=== PATIENT | female | born 1930 | race Caucasian/White ===

== ENCOUNTER 2017-08-12 21:22 | Inpatient (IN) ==
[2017-08-12] MEDS ORDERED: METOCLOPRAMIDE 10 MG/2 ML VIAL IV STA (21:53)
--- NOTE | 2017-08-12 22:37 | EKG Report ---
Stationary ECG Study 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
[2017-08-12 22:49] LABS: Eosinophils # 0.1 10*3/uL (0.0-0.87); Eosinophils % 0.6 % (0.00-10.9); Hemoglobin 10.6 GM/DL (12.0-16.0); Monocytes % 4.7 % (1.7-12.7)
[2017-08-12 22:54] LABS: Basophils # 0.1 10*3/uL (0.0-0.2); Basophils % 0.4 % (0.0-0.8); Immature Granulocytes % 0.7 %; Immature Granulocytes Absolute 0.13 #; Lymphocytes # 0.9 10*3/uL (1.4-4.0); Lymphocytes % 4.8 % (21.3-54.2); Mean Corpuscular Hemoglobin 21 PG (27-34); Mean Corpuscular Volume 71.2 FL (87-102); Mean Platelet Volume 9.9 FL (9.6-12.0); Monocytes # 0.9 10*3/uL (0.11-0.8); Neutrophils # 17.4 10*3/uL (1.4-7.4); Neutrophils % 88.8 % (38.7-73.9); Platelet Count 282 T/CUMM (130-400); Red Blood Count 5.14 MC/CUMM (3.8-5.5); Red Cell Distribution Width 17.3 % (9.3-17.3); White Blood Count 19.6 T/CUMM (4-12)
[2017-08-12 22:56] LABS: INR 1.1; PT Patient Result 11.3 SECS
[2017-08-12] MEDS ORDERED: METOCLOPRAMIDE 10 MG/2 ML VIAL ONE (22:57)
[2017-08-12 22:58] LABS: Hematocrit 36.1 VOL% (35.7-47.0)
[2017-08-12] MEDS ORDERED: cefTRIAXone 1,000 MG in SODIUM CHLORIDE 0.9% 100 ML IV STA (23:07)
[2017-08-12 23:08] LABS: Alanine Aminotransferase 12 U/L (13-56); Albumin 3.8 G/DL (3.4-5.0); Alkaline Phosphatase 73 U/L (45-117); Aspartate Amino Transferase 20 U/L (0-37); Blood Urea Nitrogen 31 MG/DL (7-18); Calcium 8.9 MG/DL (8.5-10.1); Glucose 162 MG/DL (74-106); Magnesium 2.1 MG/DL (1.8-2.4); Osmolality,Calculated 289.4 MOS/KG (273-304); Sodium 140 MMOL/L (136-145); Total Protein 7.4 G/DL (6.4-8.3); Troponin I Only < 0.015 NG/ML (0.00-0.045)
[2017-08-12] MEDS ORDERED: SODIUM CHLORIDE 0.9% 500 ML IV STA (23:15)
--- NOTE | 2017-08-12 23:22 | Emergency Department Note ---
Tammy Harmon Gwan, am scribing for, and in the presence of, Twin Armenta MD 21:57. IGeovany Kevin Lee, MD, personally performed the services described in this documentation, ascribed by Ron Munoz in my presence, and it is both accurate and complete . Arrival - Arrival Chief Complaint: Nausea/Vomiting/Diarrhea Stated Complaint: N/V ED Nursing Triage Note: C/C productive cough x 1 week, fever and N/V, and confusion started today. Mode of Arrival: Stretcher Source: Family, Old Records Reviewed, RN Notes Reviewed Time Seen by Provider: 08/12/17 21:51 - History of Present Illness HPI Narrative: Patient is a 86 y/o female who presents to the ED via EMS for further evaluation. Patient is a poor historian and is accompanied by family. Family stated that they were alerted to pt's home after reports of pt "shaking all over ". After arriving at pt's home, pt became confused and vomited x4. This prompted the family to alert EMS for transport o ED for further evaluation. Family confirmed that pt has had sinus congestion for the past 2 weeks but denies that pt has taking anything OTC to help relieve sxs. While in ED, pt denies having any chest pain, SOB, abd pain, CONNOLYL or having any recent injury/ fall. Patient is followed by Dr. Dr. Núñez and Dr. Ibarra. No other problems/ complaints reported in ED. Onset (ago): hour(s) Consistency: constant Severity: moderate Allergies/Adverse Reactions: Allergies Allergy/AdvReac Type Severity Reaction Status Date / Time codeine Allergy Unknown/Unable Verified 08/12/17 21:41 to obtain Review of System - Review of System 12 point system: reviewed and no additional remarkable complaints except as stated - Review of System Cardiovascular: Present: as per HPI. Absent: chest pain Gastrointestinal: Present: as per HPI, nausea, vomiting. Absent: abdominal pain Neurological: Present: as per HPI, confusion. Absent: headache, weakness Medical,Surgical,& Family Hx - Medical History Cardio: History of: Cardiac Dysrhythmia (A-fib), CHF, Hypertension - Surgical History Abdominal Surgeries: Surgical HX of: Appendectomy Patient denies: Cholecystectomy Reproductive Surgeries: Patient denies;: Hysterectomy - Social History Smoking Status: Never smoker Frequency of Alcohol Use: None Type of Drug Use: None Exam Vital Signs: Vital Signs Temperature 100.6 F H 08/12/17 21:25 Pulse Rate 79 08/12/17 21:25 Respiratory Rate 20 08/12/17 21:25 Blood Pressure 150/84 08/12/17 21:25 O2 Sat by Pulse Oximetry 91 L 08/12/17 21:25 - General General appearance: alert, in no apparent distress, other (pale) - Head Head exam: Present: atraumatic, normocephalic - ENT ENT exam: Present: normal oropharynx, mucous membranes moist, TM's normal bilaterally, normal external ear exam - Neck Neck exam: Present: full ROM, trachea midline. Absent: tenderness - Chest Chest inspection: Present: symmetric chest wall rise. Absent: tenderness - Respiratory Respiratory exam: Present: normal lung sounds bilaterally. Absent: respiratory distress - Cardiovascular Cardiovascular exam: Present: irregular rhythm, normal heart sounds. Absent: murmur - Abdominal Exam Abdominal exam: Present: soft. Absent: distention, tenderness - Extremities Exam Extremities exam: Present: full ROM. Absent: tenderness - Back Exam Back exam: Present: full ROM. Absent: tenderness - Neurological Exam Neurological exam: Present: alert, oriented X3, CN II-XII intact. Absent: motor sensory deficit - Psychiatric Psychiatric exam: Present: flat affect - Skin Skin exam: Present: warm, dry, intact, normal color, pallor Course Course Narrative: will admit for IV abx and fluids Results - Labs CBC & BMP: 08/12/17 22:34 08/12/17 22:34 Lab Results: I have reviewed the patients labs Labs: Laboratory Tests 08/12/17 08/12/17 22:34 22:34 WBC 19.6 H RBC 5.14 Hgb 10.6 L Hct 36.1 MCV 71.2 L MCH 21 L MCHC 29.0 L Plt Count 282 Neut % (Auto) 88.8 H Lymph % (Auto) 4.8 L Neut # (Auto) 17.4 H Lymph # (Auto) 0.9 L [place] # (Auto) 0.9 H INR 1.1 PT Patient/Control Mix 11.3 Laboratory Tests 08/12/17 08/12/17 22:34 22:34 Sodium 140 Potassium 4.0 Chloride 105 Carbon Dioxide 25 BUN 31 H Creatinine 1.40 H BUN/Creatinine Ratio 22.00 H Glucose 162 H Lactic Acid 2.4 H ALT 12 L Globulin 3.6 H Albumin/Globulin Ratio 1.0 L - Diagnostic Findings Procedure: Chest x-ray: image reviewed by me (LLL pneumonia) Disposition Clinical Impression: Pneumonia, Sepsis, Confusion Case discussed with: patient, patient's family Disposition: Still a Patient Condition: Guarded
[2017-08-12] MEDS ORDERED: cefTRIAXone 1,000 MG VIAL ONE (23:29)
[2017-08-13] LABS: Apearance,Urine Slightly Hazy (Clear); Bacteria,Urine Few /HPF (Few); Bilirubin,Urine Negative (Negative); Blood, Urine Negative (Negative); Glucose,Urine (UA) Negative (Negative); Ketones,Urine Negative (Negative); Mucus,Urine Occasional /LPF (Occasional); Nitrite,Urine Negative (Negative); Protein,Urine 100 MG/DL; RBC,Urine 1 /HPF (0-4); Squamous Epithelial Cell,Urine Occasional /HPF (0-10); Transitional Epi Cells,Urine Occasional /HPF (<1); Urine Color Yellow (Yellow); Urine Specific Gravity 1.015 (1.001-1.035); Urine Urobilinogen < 2.0 EU/DL (0.2-1.0); WBC,Urine 5 /HPF (0-6)
--- NOTE | 2017-08-13 01:59 | Hospitalist History & Physical ---
Assessment and Plan (1) Pneumonia Status: Acute Assessment and plan: Classic acute onset was shaking chill suggestive of pneumococcal pneumonia. Continue Rocephin started in ER. Add azithromycin. O2 sat was 91% on room air in ER. Will admit to telemetry for close observation her sat is 95% on 2 L currently. Current Visit: Yes (2) Confusion Status: Acute Assessment and plan: This was a brief episode of delirium shortly after she had a shaking chill which is not unusual in a patient her age with acute onset of pneumonia. It appears to have resolved. Current Visit: Yes (3) Atrial fibrillation Status: Acute Assessment and plan: This is chronic. She is not on anticoagulants due to GI bleeding with Xarelto and even aspirin. Current rate is around 110. This is probably elevated from the infection physiologically. If it goes any higher she may need further huma blocking agents. Continue digoxin and metoprolol for now. Her digoxin level is 1.3. Current Visit: Yes (4) Chronic congestive heart failure Status: Acute Assessment and plan: This is chronic. She does appear to have some mild JVD but we will not diurese at this point due to her sepsis. I do not want her to become volume depleted in case her pressure drops. Will check 2D echo. Current Visit: Yes (5) History of GI bleed Status: Acute Assessment and plan: She has blood on both Xarelto and aspirin hence is on no anticoagulants for atrial fibrillation. Will also avoid Lovenox for DVT prophylaxis and use SCDs instead. Current Visit: Yes (6) Sepsis Status: Acute Current Visit: Yes (7) Elevated serum creatinine Status: Acute Assessment and plan: Creatinine is 1.4. I do not see any previous ones in her chart going back a couple years. 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 She has some neck vein distention and JVD so I am holding off on fluids at this time. Current Visit: Yes History of Present Illness Chief complaint: shaking chill; confusion History of present illness: Ms. Gaona is a 86 year old female Who experienced a shaking chill this afternoon. [facility] and was feeling normal until she started having violent shaking and chills. Family came over to check on her. They noticed she was extremely upset and anxious. She took a shower and then had some confusion which was brief only lasting a few minutes and then vomited. She was brought to the emergency room where she was found to have a temperature of 100.6. BP was 150/84. Initial O2 saturation was 91% on room air. Her white count was 19.6, hemoglobin 10.6, BUN 31, creatinine 1.4. EKG showed atrial fib which is chronic. She admits to periodic coughing and occasionally brings up sputum she does not know what color it is. She denies chest pain. She denies history of pneumonia. Chest x-ray in ER by my observation appears to show right upper lobe pneumonia. She absolutely insists she does not want to be resuscitated or put on life support even if it is for a nonfatal condition that we could likely treat and reverse such as pneumonia. Home Medications Medication Instructions Recorded Confirmed Type Digoxin [Digoxin] 125 mcg PO DAILY 08/13/17 08/13/17 History Magnesium Chloride [Slow Mag] 64 mg PO DAILY 08/13/17 08/13/17 History Metoprolol Tartrate [Metoprolol 50 mg PO BID 08/13/17 08/13/17 History Tartrate] Multivit-Min/FA/Lycopen/Lutein 1 each PO DAILY 08/13/17 08/13/17 History [Centrum Silver Tablet] Pantoprazole Sodium [Protonix] 40 mg PO DAILY 08/13/17 08/13/17 History Potassium Chloride 10 meq PO DAILY 08/13/17 08/13/17 History Allergies Allergy/AdvReac Type Severity Reaction Status Date / Time codeine Allergy Unknown/Unable Verified 08/12/17 21:41 to obtain Medical,Surgical,& Family Hx - Medical History Cardio: History of: Cardiac Dysrhythmia (Atrial fibrillation, chronic), CHF ( Chronic CHF. There are no old echos in chart), Hypertension Gastrointestinal: History of: Gastrointestinal Bleed (Had GI bleeding years ago then again while on Xarelto then again on aspirin) - Surgical History Abdominal Surgeries: Surgical HX of: Appendectomy Patient denies: Cholecystectomy Reproductive Surgeries: Patient denies;: Hysterectomy - Family History Family History: noncontributory (Reviewed and noncontributory to this encounter) - Social History Smoking Status: Never smoker Frequency of Alcohol Use: None Type of Drug Use: None Lives With:: Alone (She lives next to her daughter. She insists on no resuscitation whatsoever.) 12 point system: reviewed and no additional remarkable complaints except as stated Exam - Constitutional Vitals: Period Temp Pulse Resp BP Sys/Culp Pulse Ox Last 24 Hr 100.6 F-100.6 F 79-79 20-20 150-150/84-84 91 General appearance: normal weight, no acute distress - Head Head exam: Present: normal inspection - Eye Eye exam: Present: EOMI. Absent: conjunctival injection, periorbital swelling Pupils: Present: MONIKA - Neck Neck exam: Present: normal inspection. Absent: meningismus - Respiratory Respiratory exam: Present: rales (Bibasilar rales present.). Absent: wheezes - Cardiovascular Cardiovascular exam: Present: irregular rhythm, JVD (Mild JVD is present.) - GI/Abdominal GI/Abdominal exam: Present: soft. Absent: tenderness - Extremities Exam Extremities exam: Present: edema (1-2+ tibial edema present) - Back Exam Back exam: Absent: CVA tenderness (L), CVA tenderness (R) - Neurological Exam Neurological exam: Present: alert, oriented X3 - Psychiatric Psychiatric exam: Present: normal affect, normal mood - Skin Skin exam: Present: normal color, warm. Absent: rash Results - Labs CBC & BMP: 08/12/17 22:34 08/12/17 22:34
[2017-08-13] MEDS ORDERED: DOCUSATE SODIUM 100 MG CAPSULE PO PRN (02:19)
--- NOTE | 2017-08-13 03:02 | EKG Report ---
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
[2017-08-13 04:30] LABS: Red Blood Count 4.41 MC/CUMM (3.8-5.5); White Blood Count 24.5 T/CUMM (4-12)
[2017-08-13 04:31] LABS: Basophils # 0.1 10*3/uL (0.0-0.2); Basophils % 0.2 % (0.0-0.8); Hematocrit 31.4 VOL% (35.7-47.0); Hemoglobin 9.3 GM/DL (12.0-16.0); Immature Granulocytes % 0.9 %; Immature Granulocytes Absolute 0.22 #; Lymphocytes # 1.5 10*3/uL (1.4-4.0); Lymphocytes % 6.3 % (21.3-54.2); Mean Corpuscular HGB Conc 29.6 GM/DL (32-36); Mean Corpuscular Hemoglobin 21 PG (27-34); Mean Corpuscular Volume 71.2 FL (87-102); Mean Platelet Volume 10.2 FL (9.6-12.0); Monocytes # 1.4 10*3/uL (0.11-0.8); Monocytes % 5.8 % (1.7-12.7); Neutrophils # 21.3 10*3/uL (1.4-7.4); Neutrophils % 86.8 % (38.7-73.9); Platelet Count 267 T/CUMM (130-400); Red Cell Distribution Width 17.2 % (9.3-17.3)
[2017-08-13 05:00] LABS: Calcium 8.6 MG/DL (8.5-10.1); Osmolality,Calculated 284.5 MOS/KG (273-304); Potassium 4.1 MMOL/L (3.5-5.1)
[2017-08-13 05:14] LABS: Magnesium 2.2 MG/DL (1.8-2.4); Thyroid Stimulating Hormone 0.359 uIU/ml (0.358-3.74)
[2017-08-13 07:01] LABS: Band Neutrophils 5 % (0-10); Giant Platelets Few; Hypochromasia 1+; Lymphocytes 2 % (20-55); Ovalocytes Slight; Platelet Estimate Adequate; Segmented Neutrophils 89 % (50-85); Total Cells Counted 100
--- NOTE | 2017-08-13 08:04 | CT Report ---
Exam: CT head without intravenous contrast Clinical History: 86 years Female altered mental status, memory loss, confusion and disorientation Technique: Axial computed tomography images of the head/brain without intravenous contrast Comparison: No relevant comparisons Findings: Brain: Scattered microangiopathic small vessel ischemic changes throughout the deep white matter. Zuñiga-white matter distinction maintained. No mass effect. No intra or extra-axial hemorrhage. Ventricles: Unremarkable. No ventriculomegaly. Bones/joints: Calvarium is intact Soft tissues: Unremarkable Sinuses: Inflammatory changes within the ethmoid sinuses Mastoid air cells: Unremarkable visualized. Impression: 1. No acute intracranial abnormality. Mild microangiopathic small vessel ischemic changes are noted 2. Ethmoid sinus inflammatory changes PROCEDURE INTERPRETED AT [facility] DEPARTMENT OF RADIOLOGY Final Report Signed by: Alvin Zuñiga
[2017-08-13] MEDS ORDERED: METOPROLOL TARTRATE 50 MG TABLET PO SCH (09:00)
[2017-08-13] MEDS: MAGNESIUM CHLORIDE 64 MG TABLET PO SCH (09:16)
[2017-08-13] MEDS: PANTOPRAZOLE 40 MG TABLET PO SCH (09:16)
[2017-08-13] MEDS: POTASSIUM CHLORIDE 10 MEQ TABLET PO SCH (09:16)
--- NOTE | 2017-08-13 10:47 | XRay Report ---
Portable chest Exam date: 08/12/2017 9:52 PM Indication: Shortness of breath, cough Comparison: January 31, 2015 Findings: Cardiomediastinal contours are stable with underlying cardiomegaly. Prominence of the central interstitial pattern with focal consolidation within the left lung base. No acute osseous abnormalities. Visualized upper abdomen demonstrates no acute pathology. Impression: 1. Central interstitial edema pattern 2. Left basilar consolidation, atelectasis versus infection PROCEDURE INTERPRETED AT [facility] DEPARTMENT OF RADIOLOGY Final Report Signed by: Alvin Zuñiga
--- NOTE | 2017-08-13 11:12 | XRay Report ---
Portable chest Exam date: 08/13/2017 510 AM Indication: Shortness of breath, cough Comparison: Previous day at 2200 hours Findings: Cardiomediastinal contours are stable with again prominence of the hilar soft tissues. Right suprahilar and left basilar consolidations are unchanged. No acute osseous abnormalities. Visualized upper abdomen demonstrates no acute pathology. Impression: Right suprahilar and left basilar consolidations, likely unchanged likely infectious in etiology PROCEDURE INTERPRETED AT [facility] DEPARTMENT OF RADIOLOGY Final Report Signed by: Alvin Zuñiga
[2017-08-13] MEDS ORDERED: ALBUTEROL 2.5 MG/3 ML NEB RESP TX PRN (11:26)
--- NOTE | 2017-08-13 11:28 | Event Note ---
Empiric antibiotic coverage remains in progress. At the time of ED presentation , the patient was indeed sepsis secondary to pneumonia and urinary tract infection. We will add inhaled bronchodilator treatments every 4 hours and as needed. In addition, we will resume Bumex 1 mg twice daily per home medication regimen. We will recheck labs and chest x-ray in a.m.
[2017-08-13] MEDS ORDERED: AZITHROMYCIN INJ 500 MG in SODIUM CHLORIDE 0.9% 250 ML IV SCH (12:00)
[2017-08-13] MEDS: ALBUTEROL/IPRATROPIUM 3 ML NEB RESP TX SCH ×2 (13:00→20:12)
[2017-08-13] MEDS ORDERED: LEVOFLOXACIN INJ 500 MG in PREMIX 1 EACH IV SCH (14:00)
[2017-08-13] MEDS: DIGOXIN 0.125 MG TABLET PO SCH (14:36)
[2017-08-13] MEDS: METOPROLOL TARTRATE 25 MG TABLET PO SCH ×2 (14:52→21:01)
[2017-08-13] MEDS: VANCOMYCIN INJ 1,000 MG in SODIUM CHLORIDE 0.9% 250 ML IV SCH (15:58)
[2017-08-13] MEDS: BUMETANIDE 1 MG TABLET PO SCH (18:13)
[2017-08-13] MEDS: guaiFENesin/DM ER 600-30 MG TABLET PO SCH (21:02)
[2017-08-14] MEDS: ALBUTEROL/IPRATROPIUM 3 ML NEB RESP TX SCH ×4 (00:25→19:33)
[2017-08-14] MEDS: ACETAMINOPHEN 325 MG TABLET PO PRN ×2 (04:24→10:51)
[2017-08-14 05:23] LABS: Albumin 3.3 G/DL (3.4-5.0); Bilirubin,Total 0.7 MG/DL (0.2-1.0); Osmolality,Calculated 286.1 MOS/KG (273-304); Phosphorous 3.2 MG/DL (2.5-4.9); Potassium 4.1 MMOL/L (3.5-5.1); Total Protein 6.7 G/DL (6.4-8.3)
[2017-08-14 07:29] LABS: Basophils % 0.3 % (0.0-0.8); Eosinophils # 0.1 10*3/uL (0.0-0.87); Eosinophils % 0.5 % (0.00-10.9); Hematocrit 30.6 VOL% (35.7-47.0); Immature Granulocytes % 0.5 %; Immature Granulocytes Absolute 0.07 #; Lymphocytes # 1.7 10*3/uL (1.4-4.0); Lymphocytes % 11.3 % (21.3-54.2); Mean Corpuscular HGB Conc 29.4 GM/DL (32-36); Mean Corpuscular Hemoglobin 21 PG (27-34); Mean Corpuscular Volume 71.3 FL (87-102); Mean Platelet Volume 10.4 FL (9.6-12.0); Monocytes # 1.1 10*3/uL (0.11-0.8); Monocytes % 7.4 % (1.7-12.7); Neutrophils # 11.6 10*3/uL (1.4-7.4); Platelet Count 233 T/CUMM (130-400); Red Blood Count 4.29 MC/CUMM (3.8-5.5); Red Cell Distribution Width 17.4 % (9.3-17.3); White Blood Count 14.6 T/CUMM (4-12)
[2017-08-14] MEDS ORDERED: AZITHROMYCIN 250 MG TABLET PO SCH (09:00)
[2017-08-14] MEDS: POTASSIUM CHLORIDE 10 MEQ TABLET PO SCH (09:14)
[2017-08-14] MEDS: BUMETANIDE 1 MG TABLET PO SCH (09:14)
[2017-08-14] MEDS: METOPROLOL TARTRATE 25 MG TABLET PO SCH ×2 (09:15→20:16)
[2017-08-14] MEDS: guaiFENesin/DM ER 600-30 MG TABLET PO SCH ×2 (09:15→20:16)
[2017-08-14] MEDS: PANTOPRAZOLE 40 MG TABLET PO SCH (09:16)
[2017-08-14] MEDS: MAGNESIUM CHLORIDE 64 MG TABLET PO SCH (09:16)
--- NOTE | 2017-08-14 09:42 | XRay Report ---
History: COPD Date: 08/14/2017 Study: Chest x-ray AP portable Comparison exam: 08/13/2017 There is stable mild cardiomegaly. The mediastinal contours are unchanged. The pulmonary vasculature is not engorged. The lungs and pleural spaces are clear. Osseous structures are unchanged. Impression: Interval resolution of the bilateral infiltrate compared to the previous study PROCEDURE INTERPRETED AT [facility] DEPARTMENT OF RADIOLOGY Final Report Signed by: Dr. Mary Trujillo
--- NOTE | 2017-08-14 10:18 | Cardiology Consult Note ---
Licha Harmon April, RN, am scribing for, and in the presence of, Av Ibarra MD 10:18. Assessment and Plan - Time spent with patient Time spent with patient: Greater than 30 minutes (Due to assessment, planning, documentation, medication review) (1) Atrial fibrillation Status: Chronic Assessment and plan: This is currently rate controlled on Lopressor and digoxin. She is unable to be anticoagulated because of history of GI bleeding. Current Visit: Yes Qualifiers: Atrial fibrillation type: chronic Qualified Code(s): I48.2 - Chronic atrial fibrillation (2) History of GI bleed Status: Chronic Assessment and plan: The patient has not tolerated anticoagulation in the past because of history of GI bleed. She denies any recent blood in her stool or urine. Current Visit: No (3) Pneumonia Status: Acute Assessment and plan: She is on IV antibiotics (Rocephin, Levaquin, and vancomycin) and is clinically improving. Hospitalist is following. Current Visit: Yes History of Present Illness - Data of Consult Patient: known to practice within the last 3 years Consult date: 08/13/17 Requesting Physician: Vanai Carroll Primary care physician: Saeed Jones - Consult Narrative Reason for consult: History of atrial fibrillation History of present illness: Erection Shop Supervisor: Dr. Ibarra PCP: Dr. Jones Ms. Gaona is a 86 year old female who was previously followed by Dr. Beard. After his residential she established with Dr. Ibarra and saw him on March 08, 2017. She has a history of chronic atrial fibrillation, hypertensive heart disease, anemia, and GI bleed. She is unable to tolerate all blood thinners including baby aspirin because of GI bleed. Surgical history includes bilateral cataracts and appendectomy. She reports she is a lifetime non-smoker. On the evening of August 12, she developed chills, shortness of breath, nausea and vomiting. The symptoms were moderate to severe. She says her granddaughter told her she was confused. She said she had a productive cough for about 1 week prior to this. She was brought to the emergency room for further evaluation. Her white count was noted to be elevated at 19.6. BNP was elevated at 332, troponin was negative. Chest x-ray indicated left basilar consolidation, atelectasis versus infection. She has been started on IV Rocephin, vancomycin, and Levaquin. This morning she reports feeling better with improvement in shortness of breath and cough. She denies any chest pain. Oxygen is in use via nasal cannula. Her Bumex has been restarted and her i's and O's have been negative. White count today is improved at 14.6. Pulmonary blood cultures show no growth at day 1. nuclear monitoring technician currently shows atrial fibrillation with heart rates in the 70s. She is on Lopressor and Lanoxin for rate control. Her right knee is swollen and warm to touch, she complains of pain to her right knee. She is asking that Dr. Huerta be consulted. She states he has given her an injection in her knee before that did help. CC: Jun Valverde MD - Home Medications and Allergies Home Medications: Home Medications Medication Instructions Recorded Confirmed Type Bumetanide Tab [Bumex Tab] 1 mg PO DAILY 08/13/17 08/13/17 History Digoxin [Digoxin] 125 mcg PO DAILY 08/13/17 08/13/17 History Magnesium Chloride [Slow Mag] 64 mg PO DAILY 08/13/17 08/13/17 History Metoprolol Tartrate [Metoprolol 50 mg PO BID 08/13/17 08/13/17 History Tartrate] Multivit-Min/FA/Lycopen/Lutein 1 each PO DAILY 08/13/17 08/13/17 History [Centrum Silver Tablet] Pantoprazole Sodium [Protonix] 40 mg PO DAILY 08/13/17 08/13/17 History Potassium Chloride 10 meq PO DAILY 08/13/17 08/13/17 History Allergies/Adverse Reactions: Allergies Allergy/AdvReac Type Severity Reaction Status Date / Time codeine Allergy Unknown/Unable Verified 08/12/17 21:41 to obtain - Constitutional Constitutional: Present: as per HPI - EENT Nose, mouth and throat: Present: headache(s). Absent: epistaxis, neck pain - Cardiovascular Cardiovascular: Present: dyspnea, dyspnea on exertion. Absent: chest pain at rest, chest pain with activity, edema, radiating jaw, neck or arm pain, lightheadedness, orthopnea, palpitations - Respiratory Respiratory: Present: cough, dyspnea, dyspnea on exertion. Absent: hemoptysis, wheezing - Gastrointestinal Gastrointestinal: Present: nausea, vomiting. Absent: abdominal pain, constipation, diarrhea, hematemesis, hematochezia, melena - Genitourinary Genitourinary: Absent: dysuria, hematuria - Musculoskeletal Musculoskeletal: Present: joint swelling, limited range of motion, muscle weakness - Neurological Neurological: Present: abnormal gait, headache(s). Absent: confusion, dizziness , frequent falls, syncope - Psychiatric Psychiatric: Absent: anxiety, depression - Endocrine Endocrine: Present: fatigue Medical,Surgical,& Family Hx - Medical History Cardio: History of: Cardiac Dysrhythmia (Atrial fibrillation, chronic), CHF ( Chronic CHF. There are no old echos in chart), Hypertension Rheumatology: History of;: Rheumatoid Arthritis Gastrointestinal: History of: Gastrointestinal Bleed (Had GI bleeding years ago then again while on Xarelto then again on aspirin) - Surgical History HEENT Surgeries: Surgical HX of: Eye Surgery (Lasex eye surgery 10/11/2016) Abdominal Surgeries: Surgical HX of: Appendectomy, Colonoscopy - Family History Family History: Reports;: Family Cancer (Brother Leukemia) - Social History Smoking Status: Never smoker Have you smoked in the last 12 months: No Frequency of Alcohol Use: None Type of Drug Use: None Marital Status: Lives With:: Alone Functional capacity: uses cane/walker Physical Examination Vital Signs Temp Pulse Resp BP Pulse Ox 100.6 F H 79 20 150/84 91 L 08/12/17 21:25 08/12/17 21:25 08/12/17 21:25 08/12/17 21:25 08/12/17 21:25 General: Present: Appears Well, No Apparent Distress HEENT: Present: EOMI, PERRL, Mucus Membranes Moist Neck: Present: Supple Neck, Midline Trachea, No JVD/HJR, No Bruit Cardiac: Present: Irregularly Regular. Absent: Tachycardia, Bradycardia Lungs: Present: Normal Breath Sounds, Oxygen (Via nasal cannula), No Wheeze, Rales, Rhonchi Neuro: Absent: Resting Tremor, Essential Tremor Abdomen: Present: Soft, Active Bowel Sounds, Non-Tender. Absent: Distended Skin: Absent: Rash, Suspicious Lesions Musculoskeletal: Present: Decreased Range of Motion, Fluid Collection, Pain in Joint Gait: Present: Poor Gait Extremities: Present: Normal Upper Extr. Pulses, Normal Lower Extr. Pulses, Edema (To right knee). Absent: Normal Gait Result/EKG - Labs CBC & BMP: 08/14/17 06:37 08/14/17 03:56 Lab Results: I have reviewed the past 24 hour labs Labs: Laboratory Results - last 24 hr 08/14/17 08/14/17 08/14/17 03:56 03:56 03:56 WBC RBC Hgb Hct MCV MCH MCHC RDW Plt Count MPV Neut % (Auto) Lymph % (Auto) [place] % (Auto) Eos % (Auto) Baso % (Auto) Neut # (Auto) Lymph # (Auto) [place] # (Auto) Eos # (Auto) Baso # (Auto) Immature Gran % Nucleated RBC % Immature Gran # Nucleated RBCs # Immature Plt Fraction Sodium 142 Potassium 4.1 Chloride 103 Carbon Dioxide 31 Anion Gap 12.1 BUN 21 H Creatinine 1.10 H GFR Calculation 47 BUN/Creatinine Ratio 19.00 Glucose 108 H Calculated Osmolality 286.1 Calcium 9.0 Phosphorus 3.2 Magnesium 2.0 Total Bilirubin 0.70 AST 16 ALT 13 Alkaline Phosphatase 63 C-Reactive Protein 15.00 H B-Natriuretic Peptide 416 H Total Protein 6.7 Albumin 3.3 L Globulin 3.4 Albumin/Globulin Ratio 0.9 L 25-OH Vitamin D Total 08/14/17 08/14/17 03:56 06:37 WBC 14.6 H D RBC 4.29 Hgb 9.0 L Hct 30.6 L MCV 71.3 L MCH 21 L MCHC 29.4 L RDW 17.4 H Plt Count 233 MPV 10.4 Neut % (Auto) 80.0 H Lymph % (Auto) 11.3 L [place] % (Auto) 7.4 Eos % (Auto) 0.5 Baso % (Auto) 0.3 Neut # (Auto) 11.6 H Lymph # (Auto) 1.7 [place] # (Auto) 1.1 H Eos # (Auto) 0.1 Baso # (Auto) 0.0 Immature Gran % 0.5 Nucleated RBC % 0.0 Immature Gran # 0.07 Nucleated RBCs # 0.00 Immature Plt Fraction 0.0 Sodium Potassium Chloride Carbon Dioxide Anion Gap BUN Creatinine GFR Calculation BUN/Creatinine Ratio Glucose Calculated Osmolality Calcium Phosphorus Magnesium Total Bilirubin AST ALT Alkaline Phosphatase C-Reactive Protein B-Natriuretic Peptide Total Protein Albumin Globulin Albumin/Globulin Ratio 25-OH Vitamin D Total 35.3 - Diagnostic Findings Procedure: Chest x-ray: report reviewed by me - EKG EKG results: interpreted by me EKG shows: atrial fibrillation Quality Measures - VTE Contraindication to Pharmacological VTE Prophylaxis: High Risk of Bleeding IStacey Michael, MD, personally performed the services described in this documentation, ascribed by Callie Hurt RN in my presence, and it is both accurate and complete .
--- NOTE | 2017-08-14 12:08 | Hospitalist Progress Note ---
Hospitalist: Subjective Interval history: 86 white female admitted with pneumonia. She reports that her cough and breathing is better today. Did complain of some right knee pain, states has seen Dr. Huerta in the past and has received some injection in the knee previously. [place] was ordered for pain as well as x-rays of the knee, and will check uric acid level. Exam - Constitutional Vitals: Period Temp Pulse Resp BP Sys/Culp Pulse Ox Last 24 Hr 96.6 F-98.3 F 72-108 15-20 108-138/55-76 94-100 Exam: General: No Acute Distress HEENT: Normocephalic, atraumatic, Extra ocular movements intact Neck: Supple, No JVD Chest: Clear to auscultation B/L CV: S1 + S2 audible without murmur, gallop or rub Abd: soft, NT, Non-distended, BS + Ext: No edema Skin: No purpura, bruising or rash Rheumatologic: Right knee moderately swollen but not very warm to touch Neurologic: Strength 5/5 all extremities, no gross sensory deficits Results - Labs CBC & BMP: 08/14/17 06:37 08/14/17 03:56 - Impressions Assessment and Plan: Bacterial pneumonia Status: Acute Assessment and plan: Suspect pneumococcal pneumonia, she is on IV vancomycin and Rocephin and Levaquin, she is breathing better, CXR also shows some improvement in infiltrates Current Visit: Yes Acute hypoxemic respiratory failure due to pneumonia Status: Acute Assessment and plan: Continue O2 Current Visit: Yes Sepsis due to pneumonia Status: Acute Current Visit: Yes Paroxysmal atrial fibrillation Status: Acute Assessment and plan: Heart rate controlled, she is not on anticoagulants due to h/o GI bleeding with Xarelto and even aspirin. Continue digoxin and Lopressor Current Visit: Yes Acute kidney injury Status: Acute Assessment and plan: Her creatinine continues to improve Current Visit: Yes Right knee pain Status: Acute Assessment and plan: We will check uric acid, right knee x-rays, orthopedics consult Current Visit: Yes Quality Measures - VTE Contraindication to Pharmacological VTE Prophylaxis: High Risk of Bleeding
[2017-08-14] MEDS: DIGOXIN 0.125 MG TABLET PO SCH (13:07)
[2017-08-14] MEDS ORDERED: HYDROmorphone 2 MG/1 ML VIAL IV PRN (13:12)
[2017-08-14] MEDS: LEVOFLOXACIN INJ 250 MG in PREMIX 1 EACH IV SCH (14:40)
[2017-08-14] MEDS: ONDANSETRON 4 MG/2 ML VIAL IV PRN ×2 (14:40→20:16)
[2017-08-14] MEDS: VANCOMYCIN INJ 1,000 MG in SODIUM CHLORIDE 0.9% 250 ML IV SCH (15:47)
--- NOTE | 2017-08-14 17:00 | XRay Report ---
Exam: XR knee 2V BI Exam date: 08/14/2017 1:04 PM Indication: Worsening right knee Pain, Comparison: February 02, 2015 Findings: Right: Advanced tricompartmental arthrosis with essentially complete joint space loss, marginal and central osteophytes with remodeling of the articular surfaces, essentially unchanged. No fracture or dislocation. Moderate joint effusion. No radiographic soft tissue abnormalities. Left: Tricompartmental osteoarthrosis, advanced within the medial compartment. No fracture or subluxation. No joint effusion. Impression: 1. Severe tricompartmental arthrosis on the right moderate joint effusion 2. Tricompartmental arthrosis on the left, severe within the medial compartment PROCEDURE INTERPRETED AT [facility] DEPARTMENT OF RADIOLOGY Final Report Signed by: Alvin Zuñiga
--- NOTE | 2017-08-14 17:31 | Orthopedic Consult Note ---
History of Present Illness Chief complaint: Right knee pain History of present illness: Ms. Gaona is a 86 year old female admitted for pneumonia CHF exacerbation on the telemetry service. I been asked to evaluate regarding progressively worsening pain in her right knee she did not have any injury or trauma she does have a known history of severe osteoarthritis involving both of her knees and has had intra-articular cortisone injections in the past which have helped her. She has been using heat and ice for her pain which has not been very successful prompting consultation Examination: Well-developed nourished female she guards with range of motion about the right knee tolerating 5 to about 60 of active flexion she has a sizable effusion her knee is cold secondary to the ice pack there is no pain more distally of the tibia or ankle also no main proximally about the right hip she tolerates gentle range of motion about the left knee without any significant discomfort X-rays: Severe osteoarthritis involving both knees. She is tricompartmental [id number] changes with large osteophyte complexes. Impression: Osteoarthritis bilateral knees right worse than left Plan: I discussed with she and her family present to diagnose treatment plan given the the recent diagnosis of pneumonia and the start of antibiotics I would hold off on any steroid injections at this time I believe the ice is more beneficial than heat at this point given the acuteness of the inflammatory process clinically she does not have an infection in the knee and I will treated symptomatically she can use her Tylenol as needed and I have also will prescribed Voltaren gel which can be used topically multiple times a day is resolving we can consider reinjecting her. The meantime bed to chair mobility she should be able to mobilize and pivot on the left. Home Medications Medication Instructions Recorded Confirmed Type Bumetanide Tab [Bumex Tab] 1 mg PO DAILY 08/13/17 08/13/17 History Digoxin [Digoxin] 125 mcg PO DAILY 08/13/17 08/13/17 History Magnesium Chloride [Slow Mag] 64 mg PO DAILY 08/13/17 08/13/17 History Metoprolol Tartrate [Metoprolol 50 mg PO BID 08/13/17 08/13/17 History Tartrate] Multivit-Min/FA/Lycopen/Lutein 1 each PO DAILY 08/13/17 08/13/17 History [Centrum Silver Tablet] Pantoprazole Sodium [Protonix] 40 mg PO DAILY 08/13/17 08/13/17 History Potassium Chloride 10 meq PO DAILY 08/13/17 08/13/17 History Allergies Allergy/AdvReac Type Severity Reaction Status Date / Time codeine Allergy Unknown/Unable Verified 08/12/17 21:41 to obtain Medical,Surgical,& Family Hx - Medical History Cardio: History of: Cardiac Dysrhythmia (Atrial fibrillation, chronic), CHF ( Chronic CHF. There are no old echos in chart), Hypertension Rheumatology: History of;: Rheumatoid Arthritis Gastrointestinal: History of: Gastrointestinal Bleed (Had GI bleeding years ago then again while on Xarelto then again on aspirin) - Surgical History HEENT Surgeries: Surgical HX of: Eye Surgery ([employer] eye surgery 10/11/2016) Abdominal Surgeries: Surgical HX of: Appendectomy, Colonoscopy Patient denies: Cholecystectomy Reproductive Surgeries: Patient denies;: Hysterectomy - Family History Family History: Reports;: Family Cancer (Brother Leukemia) - Social History Smoking Status: Never smoker Frequency of Alcohol Use: None Type of Drug Use: None Exam - Constitutional Vitals: Period Temp Pulse Resp BP Sys/Culp Pulse Ox Last 24 Hr 96.6 F-97.8 F 64-113 15-20 123-138/59-90 94-100 Results - Labs CBC & BMP: 08/14/17 06:37 08/14/17 03:56
[2017-08-14] MEDS: DICLOFENAC 1% GEL 100 GM TUBE TOP SCH (20:17)
[2017-08-15] MEDS: ALBUTEROL/IPRATROPIUM 3 ML NEB RESP TX SCH ×4 (00:49→19:02)
[2017-08-15] MEDS: METOPROLOL TARTRATE 25 MG TABLET PO SCH (08:09)
[2017-08-15] MEDS: BUMETANIDE 1 MG TABLET PO SCH (08:09)
[2017-08-15] MEDS: MAGNESIUM CHLORIDE 64 MG TABLET PO SCH (08:09)
[2017-08-15] MEDS: POTASSIUM CHLORIDE 10 MEQ TABLET PO SCH (08:09)
[2017-08-15] MEDS: PANTOPRAZOLE 40 MG TABLET PO SCH (08:10)
[2017-08-15] MEDS: guaiFENesin/DM ER 600-30 MG TABLET PO SCH ×2 (08:10→20:33)
[2017-08-15] MEDS: DICLOFENAC 1% GEL 100 GM TUBE TOP SCH ×3 (08:11→20:34)
[2017-08-15] MEDS ORDERED: DESITIN 4OZ/NYSTATIN 15 GRAM MIXTURE PASTE TOP PRN (09:22)
[2017-08-15 09:23] LABS: Basophils % 0.1 % (0.0-0.8); Eosinophils % 0.1 % (0.00-10.9); Hematocrit 32.1 VOL% (35.7-47.0); Hemoglobin 9.4 GM/DL (12.0-16.0); Immature Granulocytes % 1.1 %; Immature Granulocytes Absolute 0.17 #; Lymphocytes # 1.4 10*3/uL (1.4-4.0); Lymphocytes % 8.7 % (21.3-54.2); Mean Corpuscular HGB Conc 29.3 GM/DL (32-36); Mean Corpuscular Hemoglobin 21 PG (27-34); Mean Corpuscular Volume 70.7 FL (87-102); Mean Platelet Volume 10.4 FL (9.6-12.0); Monocytes # 1.3 10*3/uL (0.11-0.8); Neutrophils # 12.8 10*3/uL (1.4-7.4); Platelet Count 267 T/CUMM (130-400); Red Blood Count 4.54 MC/CUMM (3.8-5.5); Red Cell Distribution Width 17.3 % (9.3-17.3); White Blood Count 15.7 T/CUMM (4-12)
[2017-08-15 09:48] LABS: Calcium 8.6 MG/DL (8.5-10.1); Osmolality,Calculated 275.8 MOS/KG (273-304); Potassium 3.5 MMOL/L (3.5-5.1)
--- NOTE | 2017-08-15 10:11 | XRay Report ---
History: Pneumonia Date: 08/15/2017 Study: Chest x-ray AP portable Comparison exam: 08/14/2017 There is stable cardiomegaly. The mediastinal contours are unchanged. There is some increased parenchymal consolidation in the left lower lobe inferiorly, medially, and posteriorly compared to the previous study.. The lungs are otherwise clear and unchanged. There is no pleural effusion. Osseous structures are unchanged. Impression: Increased left lower lobe atelectasis/infiltrate which could represent worsening pneumonia, compared to the previous study PROCEDURE INTERPRETED AT [facility] DEPARTMENT OF RADIOLOGY Final Report Signed by: Dr. Mary Trujillo
--- NOTE | 2017-08-15 12:05 | Pulmonology Consult Note ---
Assessment and Plan (1) Pneumonia Status: Acute Assessment and plan: Primarily left lower lobe pneumonia. This appears to be community-acquired. Patient has never had pneumococcal vaccine or flu vaccine. Pneumococcal pneumonia would be the most likely cause, thus far blood cultures negative. Rocephin and Zithromax should cover. Do not disagree with adding vancomycin. Watch renal function closely. The x-ray looking a little worse after a couple days in the hospital is not unusual. Her BNP is elevated and she may be a little ahead on fluids. She is not getting any IV fluids except with piggyback. Note that hemoptysis is not unusual with community-acquired pneumonia. Current Visit: Yes (2) Atrial fibrillation Status: Chronic Assessment and plan: Rate is controlled. No anticoagulants because of history of bleeding. Current Visit: Yes Qualifiers: Atrial fibrillation type: chronic Qualified Code(s): I48.2 - Chronic atrial fibrillation (3) Chronic congestive heart failure Status: Acute Assessment and plan: BNP in the 400s. Patient has history of congestive heart failure followed by Dr. Ibarra. Will get an echo. A bump with Lasix. This may be why the chest x- ray looks a little worse. Current Visit: Yes History of Present Illness Chief complaint: Cough fever History of present illness: Ms. Gaona is a 86 year old female who had a cold for about a week and a half. She had acute onset of chills and fever 3 days ago. She was brought to the emergency room and found to have a left lower lobe and right upper lobe pneumonia. Also had a urinary tract infection. She was not symptomatic as for his urinary tract infection is concerned. She was placed on Rocephin and Zithromax. Her original white blood count was 24,000. It has come down to 15, 000. She is afebrile. However the chest x-ray shows slightly increased infiltrate at the left base. Vancomycin was ordered and I was consulted. Patient has bilateral knee pain that makes it difficult for her to get out of bed. She had some vomiting yesterday after getting a shot for pain. She is eating a little bit today. She is a non-smoker and has never been a smoker. She has never had a flu shot or a pneumonia vaccine. She had a daughter that of streptococcal pneumonia about 9 years ago. She has atrial fibrillation and relates that she has been diagnosed as having congestive heart failure in the past. She is not on anticoagulants due to history of GI bleeding. Home Medications Medication Instructions Recorded Confirmed Type Bumetanide Tab [Bumex Tab] 1 mg PO DAILY 08/13/17 08/13/17 History Digoxin [Digoxin] 125 mcg PO DAILY 08/13/17 08/13/17 History Magnesium Chloride [Slow Mag] 64 mg PO DAILY 08/13/17 08/13/17 History Metoprolol Tartrate [Metoprolol 50 mg PO BID 08/13/17 08/13/17 History Tartrate] Multivit-Min/FA/Lycopen/Lutein 1 each PO DAILY 08/13/17 08/13/17 History [Centrum Silver Tablet] Pantoprazole Sodium [Protonix] 40 mg PO DAILY 08/13/17 08/13/17 History Potassium Chloride 10 meq PO DAILY 08/13/17 08/13/17 History Allergies Allergy/AdvReac Type Severity Reaction Status Date / Time codeine Allergy Unknown/Unable Verified 08/12/17 21:41 to obtain 12 point system: reviewed and no additional remarkable complaints except as stated - Constitutional Constitutional: Present: chills, fever(s) - Cardiovascular Cardiovascular: Present: diaphoresis, dyspnea on exertion - Respiratory Respiratory: Present: cough, dyspnea on exertion, change in phlegm color (She did have some blood in her sputum yesterday.) - Gastrointestinal Gastrointestinal: Present: vomiting - Genitourinary Genitourinary: Present: urinary incontinence, other (Denies dysuria but has a positive urine culture for E. coli.) - Musculoskeletal Musculoskeletal: Present: arthralgias - Hematologic/Lymphatic Hematologic/Lymphatic: Present: easy bleeding Exam (Pulmonay) H&P - Constitutional Vitals: Period Temp Pulse Resp BP Sys/Culp Pulse Ox Last 24 Hr 97.1 F-98.1 F 64-113 16-20 121-143/56-90 95-99 Exam: Patient is afebrile. Vital signs normal except for pulse irregular. O2 sat 94 % on room air. Pupils react to light. Throat is clear. Neck supple no bruits. Chest reveals rales primarily at the left base. Heart is irregular without murmur. Abdomen soft nontender no masses. Extremities no clubbing cyanosis or edema. Calves nontender. Medical,Surgical,& Family Hx - Medical History Cardio: History of: Cardiac Dysrhythmia (Atrial fibrillation, chronic), CHF ( Chronic CHF. There are no old echos in chart), Hypertension Rheumatology: History of;: Rheumatoid Arthritis Gastrointestinal: History of: Gastrointestinal Bleed (Had GI bleeding years ago then again while on Xarelto then again on aspirin) - Surgical History HEENT Surgeries: Surgical HX of: Eye Surgery ([facility] eye surgery 10/11/2016) Abdominal Surgeries: Surgical HX of: Appendectomy, Colonoscopy Patient denies: Cholecystectomy Reproductive Surgeries: Patient denies;: Hysterectomy - Family History Family History: Reports;: Family Cancer (Brother Leukemia) - Social History Smoking Status: Never smoker Frequency of Alcohol Use: None Type of Drug Use: None Results - Labs CBC & BMP: 08/15/17 08:34 08/15/17 08:34 Lab Results: I have reviewed the past 24 hour labs - Diagnostic Findings Procedure: Chest x-ray: image reviewed by me (Left lower lobe pneumonia. Probable right apical infiltrate as well. X-ray show slightly increased infiltrate compared to admission x-ray.) Quality Measures - VTE Contraindication to Pharmacological VTE Prophylaxis: High Risk of Bleeding
[2017-08-15] MEDS: DIGOXIN 0.125 MG TABLET PO SCH (13:03)
[2017-08-15] MEDS: LEVOFLOXACIN INJ 250 MG in PREMIX 1 EACH IV SCH (13:04)
--- NOTE | 2017-08-15 14:54 | Hospitalist Progress Note ---
Hospitalist: Subjective Interval history: 86 white female admitted with pneumonia. She reports that her cough and breathing is better today. Cough is better. Exam - Constitutional Vitals: Period Temp Pulse Resp BP Sys/Culp Pulse Ox Last 24 Hr 97.1 F-98.1 F 79-113 16-20 121-143/56-90 95-99 Exam: General: No Acute Distress HEENT: Normocephalic, atraumatic, Extra ocular movements intact Neck: Supple, No JVD Chest: Clear to auscultation B/L CV: S1 + S2 audible without murmur, gallop or rub Abd: soft, NT, Non-distended, BS + Ext: No edema Skin: No purpura, bruising or rash Rheumatologic: Right knee moderately swollen but not very warm to touch Neurologic: Strength 5/5 all extremities, no gross sensory deficits Results - Labs CBC & BMP: 08/15/17 08:34 08/15/17 08:34 - Impressions Assessment and Plan: Bacterial pneumonia Status: Acute Assessment and plan: Suspect pneumococcal pneumonia, she is on IV vancomycin and Rocephin and Levaquin, she is breathing better. Current Visit: Yes Acute hypoxemic respiratory failure due to pneumonia Status: Acute Assessment and plan: Continue O2 Current Visit: Yes Sepsis due to pneumonia Status: Acute Current Visit: Yes Paroxysmal atrial fibrillation Status: Acute Assessment and plan: Heart rate controlled, she is not on anticoagulants due to h/o GI bleeding with Xarelto and even aspirin. Continue digoxin and Lopressor Current Visit: Yes Acute kidney injury Status: Acute Assessment and plan: Her creatinine continues to improve Current Visit: Yes Severe knee osteoarthritis with knee pain Status: Acute Assessment and plan: She has severe knee osteoarthritis on x-rays, getting pain management Current Visit: Yes Quality Measures - VTE Contraindication to Pharmacological VTE Prophylaxis: High Risk of Bleeding
[2017-08-15] MEDS: VANCOMYCIN INJ 1,000 MG in SODIUM CHLORIDE 0.9% 250 ML IV SCH (15:07)
--- NOTE | 2017-08-15 18:19 | Order Completion Report ---
See report scanned to EMR
--- NOTE | 2017-08-15 18:59 | Cardiology Progress Note ---
I, Jenny Ortega, KALEY, am scribing for, and in the presence of, Av Ibarra MD 18:59. Assessment and Plan - Time spent with patient Time spent with patient: Greater than 30 minutes (Record review, assessment and documentation) (1) Pneumonia Status: Acute Assessment and plan: SEE PLAN LISTED BELOW Current Visit: Yes (2) Atrial fibrillation Status: Chronic Assessment and plan: SEE PLAN LISTED BELOW Current Visit: Yes Qualifiers: Atrial fibrillation type: chronic Qualified Code(s): I48.2 - Chronic atrial fibrillation (3) History of GI bleed Status: Chronic Assessment and plan: SEE PLAN LISTED BELOW Current Visit: No Cardiology - PN: Subj Interval history: Technology Advisor: Dr. Ibarra PCP: Dr. Jones SUMMARY: Ms. Gaona is a 86 year old female who was previously followed by Dr. Beard. After his custodial she established with Dr. Ibarra and saw him on March 08, 2017. She has a history of chronic atrial fibrillation, hypertensive heart disease, anemia, and GI bleed. She is unable to tolerate all blood thinners including baby aspirin because of GI bleed. Surgical history includes bilateral cataracts and appendectomy. She reports she is a lifetime non-smoker. She was presented to [facility] ER for evaluation for chills, nausea, vomiting, and dyspnea. She reports confusion, and had a productive cough for about 1 week prior to this. BNP was elevated at 332, troponin was negative. Chest x-ray indicated left basilar consolidation. Currently on IV Rocephin, vancomycin, and Levaquin. Orthopedics were consulted for right knee pain. 2016: The patient is sitting up in a chair this morning, clinically she reports improvement however her chest x-ray shows an increased left lower lobe infiltrate. She continues to get IV antibiotics for pneumonia. White count persistently elevated. Labs reviewed, creatinine 0.9, uric acid 6.5. The patient will not be able to get a steroid injection to the right knee due to her active pneumonia. This does severely limit her mobility, and this is her main concern this morning. The patient has had several episodes of A. fib with RVR, rate in the 140s. She remains asymptomatic. I am going to increase her beta-aure to try to get better rate control. She is unable to take anticoagulants due to previous GI bleed. IMPRESSION AND PLAN: 1. CHRONIC AFIB - continue beta aure and digoxin for rate control. I am bumping up her metoprolol dose due to periods of tachycardia. She is at higher risk for stroke due to inability to take anticoagulants. 2. CAD - no anginal symptoms, cardiac biomarkers negative. Unable to take ASA. 3. INTOLERANT OF ANTICOAGULATION - previous GI bleed, Chads Vasc score 4. Exam (Progress Note) - Constitutional Vitals: Period Temp Pulse Resp BP Sys/Culp Pulse Ox Last 24 Hr 97.1 F-98.1 F 64-113 16-20 122-143/56-90 96-100 Exam: General: Appears well with no apparent distress. Pleasant and cooperative. Appears comfortable. HEENT: PERRL, normocephalic, atraumatic. Mucous membranes moist. No jaundice noted. Conjunctiva moist and clear, sclerae anicteric. Neck: No JVD, no thyromegaly or lymphadenopathy noted. No carotid bruit appreciated. Cardiac: Irregular rate and rhythm. No murmur rub or gallop. PMI is nondisplaced. Lungs: Slight wheeze bilaterally coarse bilaterally without accessory muscle use to assist the respiratory pattern. Oxygen in use via nasal cannula. Abdomen: Soft, bowel sounds normoactive. Nontender and nondistended. No abdominal bruit or thrill noted. No masses noted. Musculoskeletal: No fluid collection. Decreased range of motion is noted, edema and tenderness to palpation right knee. Extremities: No clubbing, cyanosis noted. No edema noted. Upper extremity pulses 2+. Lower extremity pulses 2+. Capillary refill less than 3 seconds. Skin: Warm and dry. No unusual lesions or rashes. No skin breakdown appreciated. Neuro: Awake, alert and oriented 3. Moves all extremities well without hemiparesis or paralysis. No essential tremor is appreciated. Result/EKG - Labs CBC & BMP: 08/15/17 08:34 08/15/17 08:34 Lab Results: I have reviewed the past 24 hour labs Labs: Laboratory Results - last 24 hr 08/15/17 08/15/17 08/15/17 04:08 08:34 08:34 WBC 15.7 H RBC 4.54 Hgb 9.4 L Hct 32.1 L MCV 70.7 L MCH 21 L MCHC 29.3 L RDW 17.3 Plt Count 267 MPV 10.4 Neut % (Auto) 82.0 H Lymph % (Auto) 8.7 L [place] % (Auto) 8.0 Eos % (Auto) 0.1 Baso % (Auto) 0.1 Neut # (Auto) 12.8 H Lymph # (Auto) 1.4 [place] # (Auto) 1.3 H Eos # (Auto) 0.0 Baso # (Auto) 0.0 Immature Gran % 1.1 Nucleated RBC % 0.0 Immature Gran # 0.17 Nucleated RBCs # 0.00 Immature Plt Fraction 0.0 Sodium 137 Potassium 3.5 Chloride 98 Carbon Dioxide 32 Anion Gap 10.5 BUN 18 Creatinine 0.90 GFR Calculation 60 BUN/Creatinine Ratio 20.00 Glucose 110 H Calculated Osmolality 275.8 Uric Acid 6.5 H Calcium 8.6 - Diagnostic Findings Procedure: Chest x-ray: report reviewed by me - EKG EKG results: interpreted by me EKG shows: atrial fibrillation Quality Measures - VTE Contraindication to Pharmacological VTE Prophylaxis: High Risk of Bleeding Stacey Harmon Michael, MD, personally performed the services described in this documentation, ascribed by Jenny Ortega NP in my presence, and it is both accurate and complete [id number] .
[2017-08-15] MEDS: METOPROLOL TARTRATE 50 MG TABLET PO SCH (20:34)
[2017-08-16 05:33] LABS: Calcium 8.4 MG/DL (8.5-10.1); Magnesium 2.1 MG/DL (1.8-2.4); Osmolality,Calculated 277.7 MOS/KG (273-304); Potassium 3.7 MMOL/L (3.5-5.1)
--- NOTE | 2017-08-16 07:23 | Pulmonology Progress Note ---
Pulmonary - PN: Subj Interval history: This 86-year-old lady came in with acute community-acquired pneumonia. He had fever initially along with chills. This has subsided. She is feeling better. Continuing with empiric antibiotics. Cultures have been negative. Based on her history pneumococcal pneumonia would be the most likely. She has some mildly elevated BNP and her echo showed mitral regurgitation. Need to be careful about hydration. Exam (Progress Note) - Constitutional Vitals: Period Temp Pulse Resp BP Sys/Culp Pulse Ox Last 24 Hr 97.3 F-99.2 F 80-110 16-20 119-133/60-76 94-100 Exam: She is alert and responsive. Vital signs normal. Pupils react to light. Throat is clear. Neck supple no bruits. Chest reveals some rales at the left base. Heart normal rate and rhythm grade 1/6 systolic murmur at left sternal border. Abdomen soft nontender no masses. Bowel sounds present. Extremities no clubbing cyanosis or edema. Calves nontender. Results - Labs CBC & BMP: 08/15/17 08:34 08/16/17 04:09 Lab Results: I have reviewed the past 24 hour labs Assessment and Plan (1) Pneumonia Status: Acute Assessment and plan: Primarily left lower lobe pneumonia. This appears to be community-acquired. Patient has never had pneumococcal vaccine or flu vaccine. Pneumococcal pneumonia would be the most likely cause, thus far blood cultures negative. Rocephin and Zithromax should cover. Do not disagree with adding vancomycin. Watch renal function closely. The x-ray looking a little worse after a couple days in the hospital is not unusual. Her BNP is elevated and she may be a little ahead on fluids. She is not getting any IV fluids except with piggyback. Note that hemoptysis is not unusual with community-acquired pneumonia. 08/16/2017 community-acquired pneumonia. Pneumococcal disease will be top of the list. She is on broad-spectrum antibiotics to cover her for that and other causes. Will likely take a month or 6 weeks for the x-ray to clear. Current Visit: Yes (2) Atrial fibrillation Status: Chronic Assessment and plan: Rate is controlled. No anticoagulants because of history of bleeding. 08/16/2017 has enlarged atria on echo. Rate is controlled. Current Visit: Yes Qualifiers: Atrial fibrillation type: chronic Qualified Code(s): I48.2 - Chronic atrial fibrillation (3) Chronic congestive heart failure Status: Acute Assessment and plan: BNP in the 400s. Patient has history of congestive heart failure followed by Dr. Ibarra. Will get an echo. A bump with Lasix. This may be why the chest x- ray looks a little worse. 08/16/2017 congestive heart failure due to atrial fibrillation and mitral regurgitation. Does not appear to be in active failure at present. Current Visit: Yes
[2017-08-16] MEDS: ALBUTEROL/IPRATROPIUM 3 ML NEB RESP TX SCH ×4 (07:31→20:15)
[2017-08-16] MEDS: BUMETANIDE 1 MG TABLET PO SCH ×2 (10:26→10:29)
[2017-08-16] MEDS: POTASSIUM CHLORIDE 10 MEQ TABLET PO SCH (10:26)
[2017-08-16] MEDS: PANTOPRAZOLE 40 MG TABLET PO SCH (10:27)
[2017-08-16] MEDS: METOPROLOL TARTRATE 50 MG TABLET PO SCH ×2 (10:27→22:00)
[2017-08-16] MEDS: MAGNESIUM CHLORIDE 64 MG TABLET PO SCH (10:27)
[2017-08-16] MEDS: guaiFENesin/DM ER 600-30 MG TABLET PO SCH ×2 (10:27→22:00)
[2017-08-16] MEDS: DICLOFENAC 1% GEL 100 GM TUBE TOP SCH ×3 (10:27→22:00)
[2017-08-16] MEDS: DIGOXIN 0.125 MG TABLET PO SCH (13:31)
[2017-08-16] MEDS: LEVOFLOXACIN INJ 250 MG in PREMIX 1 EACH IV SCH (14:05)
--- NOTE | 2017-08-16 14:31 | Hospitalist Progress Note ---
Hospitalist: Subjective Interval history: 86 white female admitted with pneumonia. She reports that her cough and breathing is better today. Cough is better. Exam - Constitutional Vitals: Period Temp Pulse Resp BP Sys/Culp Pulse Ox Last 24 Hr 97.3 F-99.2 F 75-110 16-20 113-129/60-76 94-100 Exam: General: No Acute Distress HEENT: Normocephalic, atraumatic, Extra ocular movements intact Neck: Supple, No JVD Chest: Clear to auscultation B/L CV: S1 + S2 audible without murmur, gallop or rub Abd: soft, NT, Non-distended, BS + Ext: No edema Skin: No purpura, bruising or rash Rheumatologic: Right knee moderately swollen but not very warm to touch Neurologic: Strength 5/5 all extremities, no gross sensory deficits Results - Labs CBC & BMP: 08/15/17 08:34 08/16/17 04:09 - Impressions Assessment and Plan: Bacterial pneumonia Status: Acute Assessment and plan: Suspect pneumococcal pneumonia, she is on IV vancomycin and Rocephin and Levaquin, she is breathing better. Current Visit: Yes Acute hypoxemic respiratory failure due to pneumonia Status: Acute Assessment and plan: Continue O2 Current Visit: Yes Sepsis due to pneumonia Status: Acute Current Visit: Yes Paroxysmal atrial fibrillation Status: Acute Assessment and plan: Heart rate controlled, she is not on anticoagulants due to h/o GI bleeding with Xarelto and even aspirin. Continue digoxin and Lopressor Current Visit: Yes Acute kidney injury Status: Acute Assessment and plan: Her creatinine continues to improve Current Visit: Yes Severe knee osteoarthritis with knee pain Status: Acute Assessment and plan: She has severe knee osteoarthritis on x-rays, getting pain management Current Visit: Yes Quality Measures - VTE Contraindication to Pharmacological VTE Prophylaxis: High Risk of Bleeding
[2017-08-16] MEDS: VANCOMYCIN INJ 1,000 MG in SODIUM CHLORIDE 0.9% 250 ML IV SCH (16:10)
[2017-08-17] MEDS: ALBUTEROL/IPRATROPIUM 3 ML NEB RESP TX SCH ×4 (01:02→20:15)
[2017-08-17] MEDS ORDERED: VANCOMYCIN INJ 1,000 MG in SODIUM CHLORIDE 0.9% 250 ML IV SCH (04:00)
[2017-08-17] MEDS: VANCOMYCIN INJ 1,000 MG in SODIUM CHLORIDE 0.9% 250 ML IV SCH ×2 (04:37→16:23)
[2017-08-17 06:22] LABS: Basophils # 0.1 10*3/uL (0.0-0.2); Basophils % 0.5 % (0.0-0.8); Eosinophils # 0.3 10*3/uL (0.0-0.87); Eosinophils % 2.6 % (0.00-10.9); Hematocrit 28.9 VOL% (35.7-47.0); Hemoglobin 8.5 GM/DL (12.0-16.0); Lymphocytes # 1.8 10*3/uL (1.4-4.0); Lymphocytes % 18.2 % (21.3-54.2); Mean Corpuscular HGB Conc 29.4 GM/DL (32-36); Mean Corpuscular Hemoglobin 21 PG (27-34); Mean Corpuscular Volume 71.5 FL (87-102); Mean Platelet Volume 10.7 FL (9.6-12.0); Monocytes # 1.1 10*3/uL (0.11-0.8); Neutrophils # 6.5 10*3/uL (1.4-7.4); Neutrophils % 66.7 % (38.7-73.9); Platelet Count 259 T/CUMM (130-400); Red Blood Count 4.04 MC/CUMM (3.8-5.5); Red Cell Distribution Width 17.5 % (9.3-17.3); White Blood Count 9.7 T/CUMM (4-12)
[2017-08-17 06:55] LABS: Calcium 8.6 MG/DL (8.5-10.1); Osmolality,Calculated 280.4 MOS/KG (273-304); Potassium 4.5 MMOL/L (3.5-5.1)
[2017-08-17] MEDS ORDERED: PNEUMOCOCCAL VACCINE (13 VALENT) 0.5 ML SYRINGE IM ONE (07:29)
--- NOTE | 2017-08-17 07:35 | Pulmonology Progress Note ---
Pulmonary - PN: Subj Interval history: This 86-year-old lady came in with acute community-acquired pneumonia. He had fever initially along with chills. This has subsided. She is feeling better. Continuing with empiric antibiotics. Cultures have been negative. Based on her history pneumococcal pneumonia would be the most likely. She has some mildly elevated BNP and her echo showed mitral regurgitation. Need to be careful about hydration. 08/17/2017 patient is clearly improved today. Chest x-ray shows some clearing in the left lower lobe. Appetite is better. At this point would be okay with need to change to oral antibiotics and allow her to go home. She relates that she has a difficult time walking with her knee situation. It would be acceptable to proceed with injection of her right knee with steroids per Dr. Huerta. I think her pneumonia infection is under control. She also can get both a pneumococcal vaccine and a flu shot prior to discharge. Exam (Progress Note) - Constitutional Vitals: Period Temp Pulse Resp BP Sys/Culp Pulse Ox Last 24 Hr 97.3 F-99 F 78-103 16-22 113-131/58-74 94-100 Exam: She is alert and responsive. Vital signs normal. Pupils react to light. Throat is clear. Neck supple no bruits. Chest reveals few rales at the left base. Heart normal rate and rhythm grade 1/6 systolic murmur at left sternal border. Abdomen soft nontender no masses. Bowel sounds present. Extremities no clubbing cyanosis or edema. Calves nontender. Overall sounds better today. Results - Labs CBC & BMP: 08/17/17 04:12 08/17/17 04:12 Lab Results: I have reviewed the past 24 hour labs - Diagnostic Findings Procedure: Chest x-ray: image reviewed by me (Left basilar infiltrate is improved) Assessment and Plan (1) Pneumonia Status: Acute Assessment and plan: Primarily left lower lobe pneumonia. This appears to be community-acquired. Patient has never had pneumococcal vaccine or flu vaccine. Pneumococcal pneumonia would be the most likely cause, thus far blood cultures negative. Rocephin and Zithromax should cover. Do not disagree with adding vancomycin. Watch renal function closely. The x-ray looking a little worse after a couple days in the hospital is not unusual. Her BNP is elevated and she may be a little ahead on fluids. She is not getting any IV fluids except with piggyback. Note that hemoptysis is not unusual with community-acquired pneumonia. 08/16/2017 community-acquired pneumonia. Pneumococcal disease will be top of the list. She is on broad-spectrum antibiotics to cover her for that and other causes. Will likely take a month or 6 weeks for the x-ray to clear. 08/17/2017 community-acquired pneumonia. Doing well with current antibiotics. Could be changed to oral cephalosporin and discharged. Current Visit: Yes (2) Atrial fibrillation Status: Chronic Assessment and plan: Rate is controlled. No anticoagulants because of history of bleeding. 08/16/2017 has enlarged atria on echo. Rate is controlled. 08/17/2017 rate is controlled. He has mitral regurgitation and enlarged atria. Current Visit: Yes Qualifiers: Atrial fibrillation type: chronic Qualified Code(s): I48.2 - Chronic atrial fibrillation (3) Chronic congestive heart failure Status: Acute Assessment and plan: BNP in the 400s. Patient has history of congestive heart failure followed by Dr. Ibarra. Will get an echo. A bump with Lasix. This may be why the chest x- ray looks a little worse. 08/16/2017 congestive heart failure due to atrial fibrillation and mitral regurgitation. Does not appear to be in active failure at present. 08/17/2017 no active heart failure at present. Current Visit: Yes
[2017-08-17] MEDS ORDERED: methylPREDNISolone ACETATE 40 MG/1 ML VIAL MISC INJ ONE (08:13)
[2017-08-17] MEDS ORDERED: LIDOCAINE 1% 20 ML VIAL MISC INJ ONE (08:13)
--- NOTE | 2017-08-17 08:18 | XRay Report ---
History: Pneumonia Date: 08/17/2017 Study: Chest x-ray AP portable Comparison exam: August 15, 2017 There is stable cardiomegaly. The mediastinal contour is unchanged. The pulmonary vasculature is not engorged. The atelectasis/infiltrate in the left lower lobe posteriorly and medially is stable to slightly improved. There is mild strandy subsegmental atelectasis in the right infrahilar area. There is no gross pleural effusion. Osseous structures are unchanged. Impression: Stable to slightly improved left lower lobe atelectasis/infiltrate. Mild right infrahilar subsegmental atelectasis PROCEDURE INTERPRETED AT [facility] DEPARTMENT OF RADIOLOGY Final Report Signed by: Dr. Mary Trujillo
--- NOTE | 2017-08-17 09:22 | Orthopedic Progress Note ---
Orthopedics - Subjective Interval history: Patient pneumonia and white count improved knee essentially unchanged. With alcohol prep 3 cc of 1% lidocaine and 40 mg Depo-Medrol were injected to the anterolateral knee I have outlined expectations if her improvement. She will follow-up as needed again she may mobilize to weight-bear as tolerated on her degenerative right knee thank you Exam - Constitutional Vitals: Period Temp Pulse Resp BP Sys/Culp Pulse Ox Last 24 Hr 97.3 F-99 F 78-103 16-22 115-131/58-74 94-100 Results - Labs CBC & BMP: 08/17/17 04:12 08/17/17 04:12 Quality Measures - VTE Contraindication to Pharmacological VTE Prophylaxis: High Risk of Bleeding
[2017-08-17] MEDS: BUMETANIDE 1 MG TABLET PO SCH (09:29)
[2017-08-17] MEDS: METOPROLOL TARTRATE 50 MG TABLET PO SCH ×2 (09:30→20:47)
[2017-08-17] MEDS: DICLOFENAC 1% GEL 100 GM TUBE TOP SCH ×3 (09:30→20:47)
[2017-08-17] MEDS: guaiFENesin/DM ER 600-30 MG TABLET PO SCH ×2 (09:30→20:48)
[2017-08-17] MEDS: PANTOPRAZOLE 40 MG TABLET PO SCH (09:30)
[2017-08-17] MEDS: POTASSIUM CHLORIDE 10 MEQ TABLET PO SCH (09:30)
[2017-08-17] MEDS: MAGNESIUM CHLORIDE 64 MG TABLET PO SCH (09:30)
--- NOTE | 2017-08-17 09:40 | Cardiology Progress Note ---
IJordan Lesley, KALEY, am scribing for, and in the presence of, Av Ibarra MD 09:40. Assessment and Plan - Time spent with patient Time spent with patient: Greater than 30 minutes (Record review, assessment, and documentation) (1) Pneumonia Status: Acute Assessment and plan: SEE PLAN LISTED BELOW Current Visit: Yes (2) Atrial fibrillation Status: Chronic Assessment and plan: SEE PLAN LISTED BELOW Current Visit: Yes Qualifiers: Atrial fibrillation type: chronic Qualified Code(s): I48.2 - Chronic atrial fibrillation (3) History of GI bleed Status: Chronic Assessment and plan: SEE PLAN LISTED BELOW Current Visit: No Cardiology - PN: Subj Interval history: SUMMARY: Ms. Gaona is a 86 year old female who was previously followed by Dr. Beard. After his senior living she established with Dr. Ibarra and saw him on March 08, 2017. She has a history of chronic atrial fibrillation, hypertensive heart disease, anemia, and GI bleed. She is unable to tolerate all blood thinners including baby aspirin because of GI bleed. Surgical history includes bilateral cataracts and appendectomy. She reports she is a lifetime non-smoker. She was presented to [facility] ER for evaluation for chills, nausea, vomiting, and dyspnea. She reports confusion, and had a productive cough for about 1 week prior to this. BNP was elevated at 332, troponin was negative. Chest x-ray indicated left basilar consolidation. Currently on IV Rocephin, vancomycin, and Levaquin. Orthopedics were consulted for right knee pain. 2016: The patient is sitting up in a chair this morning, clinically she reports improvement however her chest x-ray shows an increased left lower lobe infiltrate. She continues to get IV antibiotics for pneumonia. White count persistently elevated. Labs reviewed, creatinine 0.9, uric acid 6.5. The patient will not be able to get a steroid injection to the right knee due to her active pneumonia. This does severely limit her mobility, and this is her main concern this morning. The patient has had several episodes of A. fib with RVR, rate in the 140s. She remains asymptomatic. I am going to increase her beta-aure to try to get better rate control. She is unable to take anticoagulants due to previous GI bleed. 2016: 86 WF, monitoring chronic AFib, hypertension, and CAD, currently stable. She is sitting in a chair today, denies cough and hemoptysis. She reports her breathing has improved. Treatment continued for CAP. Echocardiogram revealed normal left ventricular systolic function, moderate bilateral atrial enlargement , mild mitral leaflet thickening with mild to moderate mitral regurgitation, mild aortic valve sclerosis without stenosis, mild to moderate tricuspid regurgitation, EF 55%. The patient has responded well to increased beta- aure dose, A. fib rate better controlled. At this time we will sign off, Ms. Gaona may keep her already scheduled follow-up with Dr. Ibarra at [facility]. IMPRESSION AND PLAN: 1. CHRONIC AFIB - continue beta aure and digoxin for rate control. I am bumping up her metoprolol dose due to periods of tachycardia. She is at higher risk for stroke due to inability to take anticoagulants. 2. CAD - no anginal symptoms, cardiac biomarkers negative. Unable to take ASA. 3. INTOLERANT OF ANTICOAGULATION - previous GI bleed, Chads Vasc score 4. Exam (Progress Note) - Constitutional Vitals: Period Temp Pulse Resp BP Sys/Culp Pulse Ox Last 24 Hr 97.3 F-99.2 F 75-110 16-20 113-129/60-76 94-100 Exam: General: Appears well with no apparent distress. Pleasant and cooperative. Appears comfortable. HEENT: PERRL, normocephalic, atraumatic. Mucous membranes moist. No jaundice noted. Conjunctiva moist and clear, sclerae anicteric. Neck: No JVD, no thyromegaly or lymphadenopathy noted. No carotid bruit appreciated. Cardiac: Irregular rate and rhythm. No murmur rub or gallop. PMI is nondisplaced. Lungs: Slight wheeze bilaterally coarse bilaterally without accessory muscle use to assist the respiratory pattern. Oxygen in use via nasal cannula. Abdomen: Soft, bowel sounds normoactive. Nontender and nondistended. No abdominal bruit or thrill noted. No masses noted. Musculoskeletal: No fluid collection. Decreased range of motion is noted, edema and tenderness to palpation right knee. Extremities: No clubbing, cyanosis noted. No edema noted. Upper extremity pulses 2+. Lower extremity pulses 2+. Capillary refill less than 3 seconds. Skin: Warm and dry. No unusual lesions or rashes. No skin breakdown appreciated. Neuro: Awake, alert and oriented 3. Moves all extremities well without hemiparesis or paralysis. No essential tremor is appreciated. Result/EKG - Labs CBC & BMP: 08/17/17 04:12 08/17/17 04:12 Lab Results: I have reviewed the past 24 hour labs Labs: Laboratory Results - last 24 hr 08/16/17 08/16/17 04:09 04:10 Sodium 138 Potassium 3.7 Chloride 99 Carbon Dioxide 30 Anion Gap 12.7 BUN 21 H Creatinine 0.90 GFR Calculation 60 BUN/Creatinine Ratio 23.00 H Glucose 92 Calculated Osmolality 277.7 Calcium 8.4 L Magnesium 2.1 C-Reactive Protein 18.80 H - EKG EKG results: interpreted by me EKG shows: atrial fibrillation Quality Measures - VTE Contraindication to Pharmacological VTE Prophylaxis: High Risk of Bleeding IStacey Michael, MD, personally performed the services described in this documentation, ascribed by Jenny Ortega NP in my presence, and it is both accurate and complete 940 .
[2017-08-17] MEDS: DIGOXIN 0.125 MG TABLET PO SCH (14:23)
--- NOTE | 2017-08-17 14:54 | Physician Query Form ---
CLICK EDIT DOCUMENT TO SELECT QUERY ANSWER --> OK --> SIGN Kim Nunez RN Clinical Toy Department Manager W) [phone] (f) [phone] [email or web address] PROVIDERS: Make your selection(s) from the choices in EACH section by typing an "x" and enter comments in the comment section. Please use your independent medical judgment in providing your response. This request does not imply that any particular answer is desired or expected. CLINICAL INDICATORS: (Providers should not edit this section) Based on documentation of "CHF", [id number], Echo showed EF of 55%. Pt. treated with PO Bumex. Please provide further specificity regarding CHF. ACUITY: ( ) Acute ( ) Chronic (x) Acute on Chronic ( ) Clinically unable to determine TYPE: ( ) Systolic (HFrEF - heart failure with reduced systolic function/EF) (x ) Diastolic (HFpEF - heart failure with preserved systolic function/EF) ( ) Combined Systolic/Diastolic ( ) Other, please specify: ( ) Clinically unable to determine ( ) Past Medical History of Systolic CHF ( x) Past Medical History of Diastolic CHF ( ) Clinically unable to determine COMMENTS: PLEASE ALSO DOCUMENT RESPONSE IN PROGRESS NOTES AND/OR DISCHARGE SUMMARY Use of terms such as suspected, likely, or probable (associated with a specific diagnosis that is being evaluated, monitored, or treated as if it exists) are acceptable and can be restated in the discharge summary if not ruled out. MTDD
[2017-08-17] MEDS: LEVOFLOXACIN INJ 250 MG in PREMIX 1 EACH IV SCH (14:55)
--- NOTE | 2017-08-17 16:00 | Hospitalist Progress Note ---
Hospitalist: Subjective Interval history: Pt is awake and alert and reports her breathing is much better, she was admitted with pneumonia Exam - Constitutional Vitals: Period Temp Pulse Resp BP Sys/Culp Pulse Ox Last 24 Hr 97.3 F-99 F 77-103 16-22 115-131/58-74 94-100 Exam: General: No Acute Distress HEENT: Normocephalic, atraumatic, Extra ocular movements intact Neck: Supple, No JVD Chest: Clear to auscultation B/L CV: S1 + S2 audible without murmur, gallop or rub Abd: soft, NT, Non-distended, BS + Ext: No edema Skin: No purpura, bruising or rash Rheumatologic: Right knee moderately swollen but not very warm to touch Neurologic: Strength 5/5 all extremities, no gross sensory deficits Results - Labs CBC & BMP: 08/17/17 04:12 08/17/17 04:12 - Impressions Assessment and Plan: Bacterial pneumonia Status: Acute Assessment and plan: Suspect pneumococcal pneumonia, she is on IV vancomycin and Rocephin and Levaquin, she is breathing better. Current Visit: Yes Acute hypoxemic respiratory failure due to pneumonia Status: Acute Assessment and plan: Continue O2 Current Visit: Yes Sepsis due to pneumonia Status: Acute Current Visit: Yes Paroxysmal atrial fibrillation Status: Acute Assessment and plan: Heart rate controlled, she is not on anticoagulants due to h/o GI bleeding with Xarelto and even aspirin. Continue digoxin and Lopressor Current Visit: Yes Acute kidney injury Status: Acute Assessment and plan: Resolved Current Visit: Yes Severe knee osteoarthritis with knee pain Status: Acute Assessment and plan: She has severe knee osteoarthritis on x-rays, getting pain management. 3 cc of 1% lidocaine and 40 mg Depo-Medrol were injected by Dr. Huerta 08/17 Current Visit: Yes Quality Measures - VTE Contraindication to Pharmacological VTE Prophylaxis: High Risk of Bleeding
[2017-08-18] MEDS: ALBUTEROL/IPRATROPIUM 3 ML NEB RESP TX SCH ×4 (00:51→19:07)
[2017-08-18] MEDS: VANCOMYCIN INJ 1,000 MG in SODIUM CHLORIDE 0.9% 250 ML IV SCH ×2 (03:53→18:00)
[2017-08-18 05:03] LABS: Basophils % 0.3 % (0.0-0.8); Hematocrit 30.7 VOL% (35.7-47.0); Hemoglobin 8.9 GM/DL (12.0-16.0); Immature Granulocytes % 1.7 %; Immature Granulocytes Absolute 0.13 #; Lymphocytes # 0.8 10*3/uL (1.4-4.0); Lymphocytes % 10.8 % (21.3-54.2); Mean Corpuscular Hemoglobin 21 PG (27-34); Mean Corpuscular Volume 71.2 FL (87-102); Mean Platelet Volume 10.2 FL (9.6-12.0); Monocytes # 0.4 10*3/uL (0.11-0.8); Monocytes % 5.7 % (1.7-12.7); Neutrophils # 6.1 10*3/uL (1.4-7.4); Neutrophils % 81.5 % (38.7-73.9); Platelet Count 270 T/CUMM (130-400); Red Blood Count 4.31 MC/CUMM (3.8-5.5); Red Cell Distribution Width 17.3 % (9.3-17.3); White Blood Count 7.5 T/CUMM (4-12)
[2017-08-18 05:39] LABS: Calcium 8.4 MG/DL (8.5-10.1); Osmolality,Calculated 286.3 MOS/KG (273-304); Potassium 4.2 MMOL/L (3.5-5.1)
--- NOTE | 2017-08-18 08:55 | Pulmonology Progress Note ---
Pulmonary - PN: Subj Interval history: The patient is an 86-year-old white lady that came in with a left lower lobe pneumonia. She lives alone and has been very weak. She says she had a good night last night and her breathing is much better. She is not having any coughing or shortness of breath now. Her chest x-ray has improved. She is still a little unsteady getting around. She wants to try to go home soon but she may need to go to a swing bed. She does feel like her breathing is much better. Exam (Progress Note) - Constitutional Vitals: Period Temp Pulse Resp BP Sys/Culp Pulse Ox Last 24 Hr 96.9 F-98.3 F 68-116 16-20 119-144/66-88 96-100 General appearance: normal weight, no acute distress - Head Head exam: Present: normal inspection, normocephalic - Eye Eye exam: Present: EOMI. Absent: scleral icterus Pupils: Present: MONIKA - ENT ENT exam: Present: normal exam - Neck Neck exam: Absent: lymphadenopathy, thyromegaly - Respiratory Respiratory exam: Present: clear to auscultation bilaterally. Absent: rales, wheezes - Cardiovascular Cardiovascular exam: Present: regular rate and rhythm, systolic murmur (She has a very soft systolic murmur.). Absent: gallop - GI/Abdominal GI/Abdominal exam: Present: normal bowel sounds, soft. Absent: organomegaly, tenderness - Extremities Exam Extremities exam: Absent: calf tenderness, edema - Neurological Exam Neurological exam: Present: alert, oriented X3, CN II-XII intact - Psychiatric Psychiatric exam: Present: normal affect - Skin Skin exam: Present: warm, dry Results - Labs CBC & BMP: 08/18/17 04:32 08/18/17 04:32 Assessment and Plan (1) DJD (degenerative joint disease) Status: Acute Assessment and plan: She has had her right knee injected and is feeling better. Current Visit: Yes (2) Pneumonia Status: Acute Assessment and plan: Clinically she is doing well and her breathing is better. She can probably take oral antibiotics now. She may need to go to a swing bed because of generalized weakness and she lives alone. Current Visit: Yes (3) Atrial fibrillation Status: Chronic Assessment and plan: Her heart rate is under good control. Current Visit: Yes Qualifiers: Atrial fibrillation type: chronic Qualified Code(s): I48.2 - Chronic atrial fibrillation (4) Chronic congestive heart failure Status: Acute Assessment and plan: She has no signs of heart failure now. She had a very good night. Current Visit: Yes
[2017-08-18] MEDS: POTASSIUM CHLORIDE 10 MEQ TABLET PO SCH (09:12)
[2017-08-18] MEDS: BUMETANIDE 1 MG TABLET PO SCH (09:12)
[2017-08-18] MEDS: guaiFENesin/DM ER 600-30 MG TABLET PO SCH ×3 (09:12→20:33)
[2017-08-18] MEDS: METOPROLOL TARTRATE 50 MG TABLET PO SCH ×2 (09:12→20:30)
[2017-08-18] MEDS: MAGNESIUM CHLORIDE 64 MG TABLET PO SCH (09:12)
[2017-08-18] MEDS: PANTOPRAZOLE 40 MG TABLET PO SCH (09:12)
[2017-08-18] MEDS: DICLOFENAC 1% GEL 100 GM TUBE TOP SCH ×3 (09:13→20:30)
[2017-08-18] MEDS: DIGOXIN 0.125 MG TABLET PO SCH (14:04)
--- NOTE | 2017-08-18 14:39 | Hospitalist Progress Note ---
Hospitalist: Subjective Interval history: Pt is awake and alert and reports her breathing is much better, she was admitted with pneumonia Exam - Constitutional Vitals: Period Temp Pulse Resp BP Sys/Culp Pulse Ox Last 24 Hr 96.9 F-98.3 F 68-116 16-20 115-144/59-88 92-100 Exam: General: No Acute Distress HEENT: Normocephalic, atraumatic, Extra ocular movements intact Neck: Supple, No JVD Chest: Clear to auscultation B/L CV: S1 + S2 audible without murmur, gallop or rub Abd: soft, NT, Non-distended, BS + Ext: No edema Skin: No purpura, bruising or rash Rheumatologic: Right knee moderately swollen but not very warm to touch Neurologic: Strength 5/5 all extremities, no gross sensory deficits Results - Labs CBC & BMP: 08/18/17 04:32 08/18/17 04:32 - Impressions Bacterial pneumonia Status: Acute Assessment and plan: Suspect pneumococcal pneumonia, she is on IV vancomycin and Rocephin and Levaquin, she is breathing better. Current Visit: Yes Acute hypoxemic respiratory failure due to pneumonia Status: Acute Assessment and plan: Resolved, Off O2 Current Visit: Yes Sepsis due to pneumonia Status: Acute Current Visit: Yes Paroxysmal atrial fibrillation Status: Acute Assessment and plan: Heart rate controlled, she is not on anticoagulants due to h/o GI bleeding with Xarelto and even aspirin. Continue digoxin and Lopressor Current Visit: Yes Acute kidney injury Status: Acute Assessment and plan: Resolved Current Visit: Yes Severe knee osteoarthritis with knee pain Status: Acute Assessment and plan: She has severe knee osteoarthritis on x-rays, getting pain management. 3 cc of 1% lidocaine and 40 mg Depo-Medrol were injected by Dr. Huerta 08/17 Current Visit: Yes DC Plan: Swing bed, SW on case Quality Measures - VTE Contraindication to Pharmacological VTE Prophylaxis: High Risk of Bleeding
[2017-08-18] MEDS: LEVOFLOXACIN INJ 250 MG in PREMIX 1 EACH IV SCH (14:51)
[2017-08-18] MEDS ORDERED: INFLUENZA VIRUS VACCINE 0.5 ML SYRINGE IM ONE (16:22)
[2017-08-19] MEDS: ALBUTEROL/IPRATROPIUM 3 ML NEB RESP TX SCH ×4 (00:10→19:03)
[2017-08-19] MEDS: VANCOMYCIN INJ 1,000 MG in SODIUM CHLORIDE 0.9% 250 ML IV SCH ×2 (04:49→18:34)
[2017-08-19 05:24] LABS: Basophils # 0.1 10*3/uL (0.0-0.2); Basophils % 0.7 % (0.0-0.8); Eosinophils # 0.2 10*3/uL (0.0-0.87); Eosinophils % 1.6 % (0.00-10.9); Hematocrit 29.6 VOL% (35.7-47.0); Hemoglobin 8.6 GM/DL (12.0-16.0); Immature Granulocytes Absolute 0.19 #; Lymphocytes # 2.4 10*3/uL (1.4-4.0); Lymphocytes % 24.9 % (21.3-54.2); Mean Corpuscular HGB Conc 29.1 GM/DL (32-36); Mean Corpuscular Hemoglobin 21 PG (27-34); Mean Corpuscular Volume 71.2 FL (87-102); Mean Platelet Volume 10.2 FL (9.6-12.0); Monocytes % 10.4 % (1.7-12.7); Neutrophils # 5.7 10*3/uL (1.4-7.4); Neutrophils % 60.4 % (38.7-73.9); Platelet Count 297 T/CUMM (130-400); Red Blood Count 4.16 MC/CUMM (3.8-5.5); Red Cell Distribution Width 17.6 % (9.3-17.3); White Blood Count 9.5 T/CUMM (4-12)
[2017-08-19 05:48] LABS: Calcium 8.6 MG/DL (8.5-10.1); Osmolality,Calculated 288.1 MOS/KG (273-304); Potassium 4.7 MMOL/L (3.5-5.1)
[2017-08-19] MEDS: guaiFENesin/DM ER 600-30 MG TABLET PO SCH ×2 (08:45→21:09)
[2017-08-19] MEDS: BUMETANIDE 1 MG TABLET PO SCH (08:45)
[2017-08-19] MEDS: METOPROLOL TARTRATE 50 MG TABLET PO SCH ×2 (08:45→21:09)
[2017-08-19] MEDS: POTASSIUM CHLORIDE 10 MEQ TABLET PO SCH (08:45)
[2017-08-19] MEDS: DICLOFENAC 1% GEL 100 GM TUBE TOP SCH ×3 (08:46→21:11)
[2017-08-19] MEDS: PANTOPRAZOLE 40 MG TABLET PO SCH (08:46)
[2017-08-19] MEDS: MAGNESIUM CHLORIDE 64 MG TABLET PO SCH (08:46)
[2017-08-19] MEDS: DIGOXIN 0.125 MG TABLET PO SCH (13:43)
[2017-08-19] MEDS: LEVOFLOXACIN INJ 250 MG in PREMIX 1 EACH IV SCH (14:11)
--- NOTE | 2017-08-19 14:14 | Hospitalist Progress Note ---
Hospitalist: Subjective Interval history: Pt is awake and alert and reports her breathing is much better, she was admitted with pneumonia Exam - Constitutional Vitals: Period Temp Pulse Resp BP Sys/Culp Pulse Ox Last 24 Hr 96.7 F-99.6 F 64-91 16-20 125-146/58-73 93-99 Exam: General: No Acute Distress HEENT: Normocephalic, atraumatic, Extra ocular movements intact Neck: Supple, No JVD Chest: Clear to auscultation B/L CV: S1 + S2 audible without murmur, gallop or rub Abd: soft, NT, Non-distended, BS + Ext: No edema Skin: No purpura, bruising or rash Rheumatologic: Right knee moderately swollen but not very warm to touch Neurologic: Strength 5/5 all extremities, no gross sensory deficits Results - Labs CBC & BMP: 08/19/17 04:18 08/19/17 04:18 - Impressions - Impressions Bacterial pneumonia Status: Acute Assessment and plan: Suspect pneumococcal pneumonia, she is on IV vancomycin and Rocephin and Levaquin, she is breathing better. Current Visit: Yes Acute hypoxemic respiratory failure due to pneumonia Status: Acute Assessment and plan: Resolved, Off O2 Current Visit: Yes Sepsis due to pneumonia Status: Acute Current Visit: Yes Paroxysmal atrial fibrillation Status: Acute Assessment and plan: Heart rate controlled, she is not on anticoagulants due to h/o GI bleeding with Xarelto and even aspirin. Continue digoxin and Lopressor Current Visit: Yes Acute kidney injury Status: Acute Assessment and plan: Resolved Current Visit: Yes Severe knee osteoarthritis with knee pain Status: Acute Assessment and plan: She has severe knee osteoarthritis on x-rays, getting pain management. 3 cc of 1% lidocaine and 40 mg Depo-Medrol were injected by Dr. Huerta 08/17 Current Visit: Yes DC Plan: Swing bed, SW on case Quality Measures - VTE Contraindication to Pharmacological VTE Prophylaxis: High Risk of Bleeding
[2017-08-20] MEDS: ALBUTEROL/IPRATROPIUM 3 ML NEB RESP TX SCH ×4 (00:12→19:56)
[2017-08-20 04:41] LABS: Basophils # 0.1 10*3/uL (0.0-0.2); Basophils % 1.1 % (0.0-0.8); Eosinophils # 0.5 10*3/uL (0.0-0.87); Eosinophils % 5.5 % (0.00-10.9); Hematocrit 31.9 VOL% (35.7-47.0); Hemoglobin 9.3 GM/DL (12.0-16.0); Immature Granulocytes % 1.9 %; Immature Granulocytes Absolute 0.18 #; Lymphocytes # 2.7 10*3/uL (1.4-4.0); Lymphocytes % 28.4 % (21.3-54.2); Mean Corpuscular HGB Conc 29.2 GM/DL (32-36); Mean Corpuscular Hemoglobin 21 PG (27-34); Mean Corpuscular Volume 70.4 FL (87-102); Monocytes % 10.4 % (1.7-12.7); Neutrophils # 4.9 10*3/uL (1.4-7.4); Neutrophils % 52.7 % (38.7-73.9); Platelet Count 322 T/CUMM (130-400); Red Blood Count 4.53 MC/CUMM (3.8-5.5); Red Cell Distribution Width 17.8 % (9.3-17.3); White Blood Count 9.3 T/CUMM (4-12)
[2017-08-20 04:45] LABS: Calcium 8.7 MG/DL (8.5-10.1); Potassium 4.4 MMOL/L (3.5-5.1)
[2017-08-20] MEDS: VANCOMYCIN INJ 1,000 MG in SODIUM CHLORIDE 0.9% 250 ML IV SCH (05:15)
[2017-08-20 07:30] LABS: Hypochromasia 1+; Macrocytosis 2+; Target Cells Slight
[2017-08-20] MEDS: METOPROLOL TARTRATE 50 MG TABLET PO SCH ×2 (09:25→20:57)
[2017-08-20] MEDS: DICLOFENAC 1% GEL 100 GM TUBE TOP SCH ×3 (09:26→20:57)
[2017-08-20] MEDS: MAGNESIUM CHLORIDE 64 MG TABLET PO SCH (09:26)
[2017-08-20] MEDS: guaiFENesin/DM ER 600-30 MG TABLET PO SCH ×2 (09:26→20:57)
[2017-08-20] MEDS: PANTOPRAZOLE 40 MG TABLET PO SCH (09:26)
[2017-08-20] MEDS: POTASSIUM CHLORIDE 10 MEQ TABLET PO SCH (09:26)
[2017-08-20] MEDS: BUMETANIDE 1 MG TABLET PO SCH (09:26)
[2017-08-20] MEDS: DIGOXIN 0.125 MG TABLET PO SCH (13:52)
[2017-08-20] MEDS: LEVOFLOXACIN INJ 250 MG in PREMIX 1 EACH IV SCH (15:25)
--- NOTE | 2017-08-20 15:26 | Hospitalist Progress Note ---
Hospitalist: Subjective Interval history: Patient is awake and comfortable and breathing quite well Exam - Constitutional Vitals: Period Temp Pulse Resp BP Sys/Culp Pulse Ox Last 24 Hr 97.2 F-98.8 F 72-105 15-19 125-157/59-78 95-99 Exam: General: No Acute Distress HEENT: Normocephalic, atraumatic, Extra ocular movements intact Neck: Supple, No JVD Chest: Clear to auscultation B/L CV: S1 + S2 audible without murmur, gallop or rub Abd: soft, NT, Non-distended, BS + Ext: No edema Skin: No purpura, bruising or rash Rheumatologic: Right knee moderately swollen but not very warm to touch Neurologic: Strength 5/5 all extremities, no gross sensory deficits Results - Labs CBC & BMP: 08/20/17 03:50 08/20/17 03:50 - Impressions - Impressions Bacterial pneumonia Status: Acute Assessment and plan: Suspect pneumococcal pneumonia, she is on oral Levaquin Current Visit: Yes Acute hypoxemic respiratory failure due to pneumonia Status: Acute Assessment and plan: Resolved, Off O2 Current Visit: Yes Sepsis due to pneumonia Status: Acute Current Visit: Yes Resolved Paroxysmal atrial fibrillation Status: Acute Assessment and plan: Heart rate controlled, she is not on anticoagulants due to h/o GI bleeding with Xarelto and even aspirin. Continue digoxin and Lopressor Current Visit: Yes Acute kidney injury Status: Acute Assessment and plan: Resolved Current Visit: Yes Severe knee osteoarthritis with knee pain Status: Acute Assessment and plan: She has severe knee osteoarthritis on x-rays, getting pain management. 3 cc of 1% lidocaine and 40 mg Depo-Medrol were injected intra-articularly by Dr. Huerta 08/17. The knee pain is much better Current Visit: Yes DC Plan: Swing bed, SW on case Quality Measures - VTE Contraindication to Pharmacological VTE Prophylaxis: High Risk of Bleeding
[2017-08-20] MEDS: LEVOFLOXACIN 500 MG TABLET PO SCH (15:29)
[2017-08-21] MEDS: ALBUTEROL/IPRATROPIUM 3 ML NEB RESP TX SCH ×3 (01:35→14:47)
[2017-08-21] MEDS: ACETAMINOPHEN 325 MG TABLET PO PRN (06:08)
[2017-08-21 06:20] LABS: Calcium 9.3 MG/DL (8.5-10.1); Osmolality,Calculated 285.1 MOS/KG (273-304); Potassium 4.5 MMOL/L (3.5-5.1)
[2017-08-21 06:24] LABS: Basophils # 0.1 10*3/uL (0.0-0.2); Basophils % 0.7 % (0.0-0.8); Eosinophils # 0.8 10*3/uL (0.0-0.87); Eosinophils % 7.3 % (0.00-10.9); Hematocrit 33.6 VOL% (35.7-47.0); Immature Granulocytes % 1.3 %; Immature Granulocytes Absolute 0.14 #; Lymphocytes # 2.6 10*3/uL (1.4-4.0); Lymphocytes % 24.7 % (21.3-54.2); Mean Corpuscular HGB Conc 28.9 GM/DL (32-36); Mean Corpuscular Hemoglobin 21 PG (27-34); Mean Corpuscular Volume 70.9 FL (87-102); Monocytes % 9.5 % (1.7-12.7); Neutrophils # 5.9 10*3/uL (1.4-7.4); Neutrophils % 56.5 % (38.7-73.9); Platelet Count 321 T/CUMM (130-400); Red Blood Count 4.74 MC/CUMM (3.8-5.5); Red Cell Distribution Width 17.7 % (9.3-17.3); White Blood Count 10.4 T/CUMM (4-12)
[2017-08-21 06:28] LABS: Hemoglobin 9.7 GM/DL (12.0-16.0)
[2017-08-21 06:58] LABS: Hypochromasia 1+
[2017-08-21 06:59] LABS: Giant Platelets Few; Microcytosis Slight; Platelet Estimate Adequate
[2017-08-21] MEDS: BUMETANIDE 1 MG TABLET PO SCH (08:49)
[2017-08-21] MEDS: POTASSIUM CHLORIDE 10 MEQ TABLET PO SCH (08:50)
[2017-08-21] MEDS: guaiFENesin/DM ER 600-30 MG TABLET PO SCH (08:50)
[2017-08-21] MEDS: METOPROLOL TARTRATE 50 MG TABLET PO SCH (08:50)
[2017-08-21] MEDS: LEVOFLOXACIN 500 MG TABLET PO SCH (08:50)
[2017-08-21] MEDS: DICLOFENAC 1% GEL 100 GM TUBE TOP SCH (08:51)
[2017-08-21] MEDS: MAGNESIUM CHLORIDE 64 MG TABLET PO SCH (08:51)
[2017-08-21] MEDS: PANTOPRAZOLE 40 MG TABLET PO SCH (08:51)
--- NOTE | 2017-08-21 09:04 | Pulmonology Progress Note ---
Pulmonary - PN: Subj Interval history: The patient is an 86-year-old white lady that came in with a left lower lobe pneumonia. She lives alone and has been very weak. She says she had a good night last night and her breathing is much better. She is not having any coughing or shortness of breath now. Her chest x-ray has improved. She is still a little unsteady getting around. She did well over the weekend and did do some walking with a walker. She says she is not having any chest pain and her breathing is doing well. She is still probably going to a swing bed. Overall she has been doing reasonably well. Exam (Progress Note) - Constitutional Vitals: Period Temp Pulse Resp BP Sys/Culp Pulse Ox Last 24 Hr 97.8 F-98.7 F 74-94 15-18 115-136/58-74 94-100 Exam: General appearance: normal weight, no acute distress, she looks quite comfortable lying in bed. - Head Head exam: Present: normal inspection, normocephalic - Eye Eye exam: Present: EOMI. Absent: scleral icterus Pupils: Present: MONIKA - ENT ENT exam: Present: normal exam - Neck Neck exam: Absent: lymphadenopathy, thyromegaly - Respiratory Respiratory exam: Present: clear to auscultation bilaterally. Absent: rales, wheezes - Cardiovascular Cardiovascular exam: Present: regular rate and rhythm, systolic murmur (She has a very soft systolic murmur.). Absent: gallop - GI/Abdominal GI/Abdominal exam: Present: normal bowel sounds, soft. Absent: organomegaly, tenderness - Extremities Exam Extremities exam: Absent: calf tenderness, edema, no signs of phlebitis. - Neurological Exam Neurological exam: Present: alert, oriented X3, CN II-XII intact, no focal deficits. - Psychiatric Psychiatric exam: Present: normal affect - Skin Skin exam: Present: warm, dry Results - Labs CBC & BMP: 08/21/17 04:20 08/21/17 04:20 Assessment and Plan (1) DJD (degenerative joint disease) Status: Acute Assessment and plan: She has had her right knee injected and is feeling better. Current Visit: Yes (2) Pneumonia Status: Acute Assessment and plan: Clinically she is doing well and her breathing is better. She can probably take oral antibiotics now. She is doing well and will go to a swing bed soon. Current Visit: Yes (3) Atrial fibrillation Status: Chronic Assessment and plan: Her heart rate is under good control. Current Visit: Yes Qualifiers: Atrial fibrillation type: chronic Qualified Code(s): I48.2 - Chronic atrial fibrillation (4) Chronic congestive heart failure Status: Acute Assessment and plan: She has no signs of heart failure now. Her breathing is doing well and she is not short of breath now. Current Visit: Yes
--- NOTE | 2017-08-21 10:08 | Discharge Summary ---
Hospital Course - Hospital Course Hospital Course: 86-year-old white female with history of hypertension, A. fib not on anticoagulation, history of GI bleeding, and congestive heart failure admitted by the hospitalist service on 08/13/2017 with sepsis due to pneumonia and UTI with acute kidney injury. She was admitted to the ICU and started on broad- spectrum antibiotics and bronchodilator treatments. CT the head showed no acute intracranial abnormality. Cardiology and pulmonary did follow the patient. Echocardiogram revealed normal left ventricular systolic function with an EF of 55% with some minimal mitral regurgitation. Her beta aure doses were increased and her A. fib rate is controlled. She will be scheduled to see Dr. Ibarra at the [facility] clinic for follow-up. Dr. Lyles does recommend both a pneumococcal vaccine and flu shot prior to her discharge. Patient also had complaints of some knee pain and Dr. Huerta from orthopedic surgery was consulted. Patient has severe osteoarthritis and he did inject her right knee with lidocaine/steroids with much improvement in her pain. Patient feels much better and she is breathing much better. She is still little weak from her illness so she will be transferred today to [facility] for further rehabilitation. She will be discharged on 5 more days of Levaquin p.o. patient' s PCP is Dr. Núñez so we will have her set up to see him in 2 weeks with a chest x-ray. Complete discharge instructions were given. Care coordination, chart review, and completed discharge paperwork took approximately 45 minutes. - Time spent with patient Time with patient DS: Greater than 30 minutes Diagnosis - Discharge Diagnosis (1) Pneumonia Status: Resolved (2) Sepsis Status: Resolved (3) Atrial fibrillation Status: Chronic (4) Chronic congestive heart failure Status: Chronic (5) History of GI bleed Status: Chronic (6) Elevated serum creatinine Status: Resolved (7) DJD (degenerative joint disease) Status: Chronic Discharge Plan - Discharge Data Disposition: Disch/Xfer-Ip Rehab Fac Condition at Discharge: Stable Discharge Diet: heart healthy Activity: as per physical therapy Contact your physician if you experience:: Shortness of breath - Discharge Medications New Albuterol Neb [Proventil Neb] 2.5 mg RESP TX RT Q4H PRN PRN Reason: Shortness Of Breath/Wheezing Albuterol/Ipratropium Neb [Duoneb] 3 ml RESP TX RT Q6H Docusate Sodium Cap [Colace Cap] 100 mg PO BID PRN capsule PRN Reason: Constipation guaiFENesin/DM ER 600-30 [Mucinex Dm 600-30 MG] 1 tablet PO BID tablet Levofloxacin Tab [Levaquin Tab] 500 mg PO DAILY tablet Continue Metoprolol Tartrate 50 mg PO BID Potassium Chloride 10 meq PO DAILY Multivit-Min/FA/Lycopen/Lutein [Centrum Silver Tablet] 1 each PO DAILY Magnesium Chloride [Slow Mag] 64 mg PO DAILY Bumetanide Tab [Bumex Tab] 1 mg PO DAILY Digoxin 125 mcg PO DAILY Pantoprazole Sodium [Protonix] 40 mg PO DAILY - Follow Up or Referral Follow Up: Av Ibarra MD [Physician] - (Keep scheduled appointment) Saeed Jones MD [Primary Care Provider] - 2 Weeks (With chest x-ray) Fortunato Huerta Jr., MD [Physician] - (As needed for knee pain) - Forms/Instructions Exam - Constitutional Vitals: Period Temp Pulse Resp BP Sys/Culp Pulse Ox Last 24 Hr 97.8 F-98.7 F 74-94 15-18 115-136/58-74 94-100 Exam: 86-year-old white female, no acute distress, alert and oriented Chest clear CV regular rate and rhythm Abdomen soft and nontender Extremities no edema Discharge Results Procedures and tests throughout hospitalization: Pending Orders 08/22/17 04:00 BMP [Basic Metabolic Panel] IN AM CBC [Comp Blood Count Auto Diff] IN AM Labs on day of discharge: Labs from last 24 hours 08/21/17 08/21/17 08/21/17 08:09 04:20 04:20 WBC 10.4 RBC 4.74 Hgb 9.7 L Hct 33.6 L MCV 70.9 L MCH 21 L MCHC 28.9 L RDW 17.7 H Plt Count 321 MPV 10.0 Neut % (Auto) 56.5 Lymph % (Auto) 24.7 [place] % (Auto) 9.5 Eos % (Auto) 7.3 Baso % (Auto) 0.7 Neut # (Auto) 5.9 Lymph # (Auto) 2.6 [place] # (Auto) 1.0 H Eos # (Auto) 0.8 Baso # (Auto) 0.1 Immature Gran % 1.3 Nucleated RBC % 0.0 Immature Gran # 0.14 Nucleated RBCs # 0.00 Platelet Estimate Adequate Giant Platelets Few Immature Plt Fraction 0.0 Hypochromasia 1+ Microcytosis Slight Sodium 142 Potassium 4.5 Chloride 103 Carbon Dioxide 32 Anion Gap 11.5 BUN 21 H Creatinine 0.80 GFR Calculation 69 BUN/Creatinine Ratio 26.00 H Glucose 100 POC Glucose 96 Calculated Osmolality 285.1 Calcium 9.3 Vancomycin Trough 08/20/17 08/20/17 18:51 12:37 WBC RBC Hgb Hct MCV MCH MCHC RDW Plt Count MPV Neut % (Auto) Lymph % (Auto) [place] % (Auto) Eos % (Auto) Baso % (Auto) Neut # (Auto) Lymph # (Auto) [place] # (Auto) Eos # (Auto) Baso # (Auto) Immature Gran % Nucleated RBC % Immature Gran # Nucleated RBCs # Platelet Estimate Giant Platelets Immature Plt Fraction Hypochromasia Microcytosis Sodium Potassium Chloride Carbon Dioxide Anion Gap BUN Creatinine GFR Calculation BUN/Creatinine Ratio Glucose POC Glucose 101 Calculated Osmolality Calcium Vancomycin Trough 22.2 H DS: Provider Date of admission: 08/13/17 01:34 Primary care physician: Saeed Jones MD Attending physician on admission: Janusz Sun MD Consults: 08/13/17 11:29 Consult to Case Mgmt/Social Srvs [CONS] Routine Reason for Case Mgmt/Social Srvs: Discharge Planning Home Health Consult to Occupational Therapy [CONS] Routine Reason for Occupational Therapy: Evaluate and Treat Start Therapy: Tomorrow Consult to Physical Therapy [CONS] Routine Reason for Physical Therapy: Evaluate and Treat Start Therapy: Tomorrow 08/13/17 13:12 Consult to Pharmacy [CONS] Routine Reason for Pharmacy Consult: Dose/Manage Vancomycin 08/14/17 09:03 Consult to Physician [CONS] Routine Comment: Pain and edema to right knee Consulting Provider: Fortunato Huerta Jr. Person Notified: Wanda Date Notified: 08/14/17 Time Notified: 09:55 08/15/17 11:02 Consult to Physician [CONS] Routine Comment: Persistent pneumonia Consulting Provider: Julian Lyles Consult to Specialist Group: Pulmonology Person Notified: Billie Date Notified: 08/15/17 Time Notified: 11:05 08/18/17 10:20 Consult to Case Mgmt/Social Srvs [CONS] Routine Reason for Case Mgmt/Social Srvs: Swingbed/SNF/Detention Rehab Discharging clinician: ROMAN Sun Expected date of discharge: 08/21/17
[2017-08-21 11:55] VITALS: BP 136/59
[2017-08-21] MEDS: DIGOXIN 0.125 MG TABLET PO SCH (13:20)
== END 2017-08-21 14:55 | disposition swing bed (61) | DRG 871 ==
LOC: EDUNIT# → EDBD → N.ED 21:22 → N.EDINP 08-13 01:34 → SUATTDRO 08-13 01:34 → N.TELES 08-13 02:04
PROVIDERS: ADMIT Family Medicine; ATTEND Hospitalist